=== PATIENT | female | born 1985 | race Caucasian/White ===

== ENCOUNTER 2016-12-03 19:36 | Emergency (ER) | payer BC ==
[2016-12-03 20:00] VITALS: BP 158/78
[2016-12-03] MEDS ORDERED: HYDROcodone/ACETAMIN 5-325 MG* 1 TAB PO ONE (20:15)
--- NOTE | 2016-12-03 20:26 | UC ---
UC Dental HPI - HPI Summary HPI Summary: 31 yo female with right sided facial pain which started this AM and significantly worsened this PM no relief with 800 mg Motrin had dental work (filling) done on right upper molar about a week ago - History of Current Complaint Chief Complaint: UCDentalProblem Stated Complaint: DENTAL PAIN Time Seen by Provider: 12/03/16 20:04 Hx Obtained From: Patient Hx Last Menstrual Period: 11/18/16 Onset/Duration: Sudden Onset, Lasting Hours Severity: Severe Pain Intensity: 8 Pain Scale Used: 0-10 Numeric Aggravating: Nothing Alleviating: Nothing - Allergies/Home Medications Allergies/Adverse Reactions: Allergies Allergy/AdvReac Type Severity Reaction Status Date / Time Latex Allergy Severe Hives Verified 02/28/13 10:50 Clonazepam [From Klonopin] AdvReac Severe Hives Verified 02/28/13 10:50 vistaril AdvReac Severe See Comment Uncoded 02/28/13 10:50 Home Medications: Home Medications Ibuprofen [Ibuprofen 200 MG] 800 mg PO Q6HR PRN 12/03/16 [History Confirmed ] PMH/Surg Hx/FS Hx/Imm Hx Previously Healthy: Yes Endocrine History Of: Denies: Diabetes, Thyroid Disease Cardiovascular History Of: Denies: Hypertension, Pacemaker/ICD Respiratory History Of: Reports: Asthma Denies: Pneumonia GI/ History Of: Denies: Ulcer, Gall Bladder Disease Neurological History Of: Denies: Seizures, Migraine Psychological History Of: Reports: Depression - post Cancer History Of: Denies: Lung Cancer - Surgical History Surgical History: Yes Surgery Procedure, Year, and Place: hernia repair 1988 - Family History Known Family History: Positive: Hypertension - Social History Alcohol Use: Rare Substance Use Type: None Smoking Status (MU): Never Smoked Tobacco - Immunization History Most Recent Tetanus Shot: >10 yrs Review of Systems Constitutional: Negative Skin: Negative Eyes: Negative ENT: Negative Respiratory: Negative Cardiovascular: Negative Gastrointestinal: Negative Genitourinary: Negative Motor: Negative Neurovascular: Negative Musculoskeletal: Negative Neurological: Negative Psychological: Negative All Other Systems Reviewed And Are Negative: Yes Physical Exam Triage Information Reviewed: Yes Appearance: Well-Appearing, Well-Nourished, Pain Distress Vital Signs: Initial Vital Signs Temp 98 F 12/03/16 19:55 Pulse 90 12/03/16 19:55 Resp 16 12/03/16 19:55 BP 158/78 12/03/16 19:55 Pulse Ox 98 12/03/16 19:55 Vital Signs Reviewed: Yes Eyes: Positive: Conjunctiva Clear ENT: Positive: Hearing grossly normal, Pharynx normal, Pharyngeal erythema, TMs normal. Negative: Nasal congestion, Nasal drainage, Tonsillar swelling, Tonsillar exudate, Trismus, Muffled/hoarse voice Dental: Positive: Other: - see image Neck: Positive: Nontender, No Lymphadenopathy Respiratory: Positive: Lungs clear, Normal breath sounds, No respiratory distress, No accessory muscle use Cardiovascular: Positive: RRR, No Murmur Musculoskeletal: Positive: Strength Intact, ROM Intact Neurological: Positive: Alert Psychological Exam: Normal Skin Exam: Normal Dental Complaint Course/Dx - Differential Dx/Diagnosis Provider Diagnoses: facial pain of ? cause. ?dental vs neuralgia Discharge - Discharge Plan Condition: Stable Disposition: HOME Prescriptions: HYDROcodone/ACETAMIN 5-325 MG* [Lorton 5-325 TAB*] 1 tab PO Q4H PRN #15 tab MDD 6 PRN Reason: Pain Additional Instructions: I am unsure of the cause of your facial pain because of your recent dental work I suggest you see your dentist in AM continue ibuprofen don't take narcotic and drive or work if no dental problem is identified you should get in to see your neurologist Images Head: 1 - pain 2 - radiates here Dental: 1 - filling/no gum swelling
== END 2016-12-03 20:26 | disposition home or self-care (01) ==
LOC: UCCORT 19:36
DX: R51 Headache (principal); R03.0 Elevated blood-pressure reading, without diagnosis of hypertension; Z88.8 Allergy status to other drugs, medicaments and biological substances
CPT/HCPCS: 99212; G0463

== ENCOUNTER 2017-03-17 18:43 | Emergency (ER) | payer BC ==
[2017-03-17] MEDS ORDERED: EPINEPHrine AMP 1 MG/ML IM ONE (18:45)
[2017-03-17] MEDS ORDERED: methylPREDNISolone 125 MG* 2 ML VIAL IV ONE (19:34)
[2017-03-17 19:40] VITALS: BP 159/90
[2017-03-17] MEDS ORDERED: NS 0.9% 1000 ML* 1,000 ML IV ONE (19:44)
--- NOTE | 2017-03-17 19:52 | UC ---
Allergic Reaction HPI - HPI Summary HPI Summary: c/o allergic reaction. Did not feel well all day. itchiness started at 17:30, she took 50mgs benadryl at that time and sx are worsening. + nausea, extreme itchiness of chest and scalp. no diarrhea, but feels that she might soon. Had similar reaction a few months ago with negative allergic work up. Denies SOB. here with . She takes medicine for dystonia which includes valium 2.5 mgs regularly x 2 yrs w/o any problems. She has allergy to klonipin. took a fioricet that is very old for a migraine. - History of Current Complaint Chief Complaint: UCAllergicReaction Stated Complaint: POSSIBLE ALLERGRIC REACTION Time Seen by Provider: 03/17/17 18:57 Hx Last Menstrual Period: 11/18/16 Pain Intensity: 0 Pain Scale Used: 0-10 Numeric - Allergies/Home Medications Allergies/Adverse Reactions: Allergies Allergy/AdvReac Type Severity Reaction Status Date / Time Latex Allergy Severe Hives Verified 03/17/17 19:31 Clonazepam [From Klonopin] AdvReac Severe Hives Verified 03/17/17 19:31 vistaril AdvReac Severe See Comment Uncoded 03/17/17 19:31 PMH/Surg Hx/FS Hx/Imm Hx Previously Healthy: Yes Endocrine History: Other - dystonia. Other Endocrine History: dystonia - Surgical History Surgical History: Yes Surgery Procedure, Year, and Place: hernia repair 1988 - Family History Known Family History: Positive: Hypertension - Social History Alcohol Use: Rare Substance Use Type: None Smoking Status (MU): Never Smoked Tobacco - Immunization History Most Recent Tetanus Shot: >10 yrs Review of Systems Constitutional: Other - s Skin: Rash - itching, scratching emphatically, jittery. Eyes: Negative ENT: Negative Respiratory: Negative Cardiovascular: Negative Gastrointestinal: Negative Genitourinary: Negative Motor: Negative Neurovascular: Negative Musculoskeletal: Negative Neurological: Negative Psychological: Anxious All Other Systems Reviewed And Are Negative: Yes Physical Exam Triage Information Reviewed: Yes Appearance: Ill-Appearing - speaks full sentences, no stridor. Vital Signs: Initial Vital Signs Temp 97.8 F 03/17/17 18:52 Pulse 111 03/17/17 18:52 Resp 24 03/17/17 18:52 BP 154/100 03/17/17 18:52 Pulse Ox 99 03/17/17 18:52 Vital Signs Reviewed: Yes Eye Exam: Normal ENT Exam: Normal ENT: Positive: Pharynx normal, Other: - no lip or tongue swelling. Negative: Muffled/hoarse voice Dental Exam: Normal Neck exam: Normal Neck: Positive: Supple, Nontender, No Lymphadenopathy Respiratory Exam: Normal Respiratory: Positive: Lungs clear, Normal breath sounds, No respiratory distress, No accessory muscle use. Negative: Crackles, Rhonchi, Stridor, Wheezing Cardiovascular: Positive: No Murmur, Pulses Normal, Tachycardia Abdominal Exam: Normal Abdomen Description: Positive: Nontender, Soft Musculoskeletal Exam: Normal Neurological Exam: Normal Psychological: Positive: Other: - anxious but improved after meds given. Skin: Positive: rashes - generalized erythema over chest and face. Allergic Reaction Course/Dx - Course Course Of Treatment: Immediate response. 911 called. IV placed. 0.3mgs epinephrine given left leg, 125 mgs solumedrol given through IV. NS 1 Liter started. Pt to [facility] d/t proximety in emergent case. ALS with monitor. - Differential Dx/Diagnosis Differential Diagnosis/HQI/PQRI: Anaphylaxis, Angioedema, Local Allergic Reaction, Urticaria Provider Diagnoses: anaphylaxis - Physician Notification/Consults Discussed Patient Care With: Dr Garber Time Discussed With Above Provider: 19:00 Discharge - Discharge Plan Condition: Fair Disposition: [facility] Referrals: No Primary Care Phys,NOPCP [Primary Care Provider] - Additional Instructions: Follow up with pcp 1 day
== END 2017-03-17 19:00 | disposition short-term general hospital (02) ==
LOC: UCCORT 18:43
DX: T78.2XXA Anaphylactic shock, unspecified, initial encounter (principal)
CPT/HCPCS: 96372; 96374; 99213; G0463; J0171; J2930

== ENCOUNTER 2017-08-20 19:05 | Emergency (ER) | payer BC ==
[2017-08-20 20:24] LABS: Urine Bacteria Absent (Absent); Urine Bilirubin Negative (Negative); Urine Glucose Negative (Negative); Urine Nitrite Negative (Negative)
[2017-08-20 21:03] LABS: Hematocrit 44 % (35-47); Hemoglobin 15.3 g/dl (12.0-16.0); Mean Corpuscular HGB Conc 35 g/dl (31-36); Mean Corpuscular Hemoglobin 30 pg (27-31); Mean Corpuscular Volume 86 fL (80-97); Mean Platelet Volume 7 um3 (7.4-10.4); Red Blood Count 5.13 10^6/ul (4.0-5.4); Red Cell Distribution Width 13 % (10.5-15); White Blood Count 13.4 10^3/ul (3.5-10.8)
[2017-08-20] MEDS ORDERED: NS 0.9% 1000 ML* 2,000 ML IV ONE (21:16)
[2017-08-20] MEDS ORDERED: Ondansetron INJ* 2 MG/ML VIAL IV ONE ×2 (21:16→22:36)
[2017-08-20 21:28] LABS: Albumin 4.5 g/dL (3.2-5.2); BUN/Creatinine Ratio 23.5 (8-20); Calcium 9.3 mg/dL (8.6-10.3); EGFR African American 104.7 (>60); EGFR Non-African American 81.4 (>60); Globulin 2.9 g/dL (2-4); Potassium 3.6 mmol/L (3.5-5.0); Total Bilirubin 0.6 mg/dL (0.2-1.0); Total Protein 7.4 g/dL (6.4-8.9)
[2017-08-20] MEDS ORDERED: Iohexol 300* (CONTRAST) 10 ML SDV IV ONE (22:19)
[2017-08-20] MEDS ORDERED: Ondansetron INJ* 2 MG/ML VIAL ONE (22:37)
[2017-08-21] MEDS ORDERED: Levofloxacin TAB* 500 MG PO ONE (00:14)
[2017-08-21 00:46] VITALS: BP 128/84
--- NOTE | 2017-08-21 03:02 | ED ---
Polly Mccall Gabriel, scribed for Blake Gamboa on 08/20/17 at 2115 . Abdominal Pain/Female - HPI Summary HPI Summary: This patient is a 32 year old F presenting to [facility] with a chief complaint of ABD pain since last night. The patient rates the pain 6/10 in severity. Patient reports vomiting and inability to handle PO intake. Patient denies vaginal discharge. Patients states her last menstrual cycle was 06/09. - History of Current Complaint Chief Complaint: EDAbdPain Stated Complaint: ABD PAIN Time Seen by Provider: 08/20/17 21:11 Hx Obtained From: Patient Hx Last Menstrual Period: 06/09 Onset/Duration: Sudden Onset, Still Present Timing: Constant Severity Currently: Moderate Pain Intensity: 6 Pain Scale Used: 0-10 Numeric Aggravating Factor(s): Food Associated Signs and Symptoms: Positive: Negative - vaginal discharge, Vomiting Allergies/Adverse Reactions: Allergies Allergy/AdvReac Type Severity Reaction Status Date / Time Latex Allergy Severe Hives Verified 08/20/17 19:32 Acetaminophen [From Fioricet] Allergy Unknown Verified 08/20/17 19:32 Reaction Details Butalbital [From Fioricet] Allergy Unknown Verified 08/20/17 19:32 Reaction Details Caffeine [From Fioricet] Allergy Unknown Verified 08/20/17 19:32 Reaction Details Clonazepam [From Klonopin] AdvReac Severe Hives Verified 08/20/17 19:32 vistaril AdvReac Severe See Comment Uncoded 08/20/17 19:32 PMH/Surg Hx/FS Hx/Imm Hx Previously Healthy: No Endocrine/Hematology History: Reports: Other Endocrine/Hematological Disorders - goiter Denies: Hx Diabetes, Hx Systemic Lupus Erythematosus, Hx Thyroid Disease, Hx Anemia, Hx Unexplained Bleeding Cardiovascular History: Reports: Hx Syncope - as a teenager Denies: Hx Hypercholesterolemia, Hx Hypotension, Hx Hypertension, Hx Pacemaker/ICD Respiratory History: Reports: Hx Asthma, Hx Seasonal Allergies Denies: Hx Chronic Bronchitis, Hx Cystic Fibrosis, Hx Lung Cancer, Hx Pneumonia, Hx Sleep Apnea GI History: Denies: Hx Cirrhosis, Hx Crohn's Disease, Hx Diverticulosis, Hx Gall Bladder Disease, Hx Gastroesophageal Reflux Disease, Hx Ulcer History: Reports: Hx Kidney Infection - last 2 yrs ago Denies: Hx Renal Disease Musculoskeletal History: Denies: Hx Arthritis, Hx Back Problems, Hx Fibromyalgia, Hx Osteoporosis Sensory History: Reports: Hx Contacts or Glasses - not with pt Denies: Hx Hearing Aid Opthamlomology History: Reports: Hx Contacts or Glasses - not with pt Neurological History: Denies: Hx Headaches, Hx Migraine, Hx Seizures, Hx Spinal Cord Injury Psychiatric History: Reports: Hx Depression - post Denies: Hx Eating Disorder, Hx Panic Disorder, Hx Suicide Attempt, Hx Substance Abuse - Surgical History Surgery Procedure, Year, and Place: hernia repair 1988 Hx Anesthesia Reactions: No Infectious Disease History: No Infectious Disease History: Denies: Hx Human Immunodeficiency Virus (HIV), Hx Shingles, Hx Tuberculosis, Traveled Outside the [place] in Last 30 Days - Family History Known Family History: Positive: Hypertension - Social History Alcohol Use: Rare Hx Substance Use: No Substance Use Type: Reports: None Hx Tobacco Use: No Smoking Status (MU): Never Smoked Tobacco Review of Systems Positive: Abdominal Pain, Vomiting Genitourinary: Negative - vaginal discharge All Other Systems Reviewed And Are Negative: Yes Physical Exam - Summary Physical Exam Summary: Appearance: Well appearing, no pain distress Skin: warm, dry, reflects adequate perfusion Head/face: normal Eyes: EOMI, SHAUNA ENT: normal Neck: supple, non-tender Respiratory: CTA, breath sounds present Cardiovascular: RRR, pulses symmetrical Abdomen: soft. Tenderness in RLQ Bowel: present Musculoskeletal: normal, strength/ROM intact Neuro: normal, sensory motor intact, A&Ox3 Triage Information Reviewed: Yes Vital Signs On Initial Exam: Initial Vitals Temp Pulse Resp BP Pulse Ox 98.5 F 107 16 150/89 96 08/20/17 19:20 08/20/17 19:20 08/20/17 19:20 08/20/17 19:20 08/20/17 19:20 Vital Signs Reviewed: Yes Diagnostics - Vital Signs Vital Signs Temp Pulse Resp BP Pulse Ox 08/20/17 20:55 97.7 F 98 16 138/92 96 08/20/17 19:20 98.5 F 107 16 150/89 96 - Laboratory Lab Results: Lab Results 08/20/17 08/20/17 Range/Units 20:00 20:49 WBC 13.4 H (3.5-10.8) 10^3/ul RBC 5.13 (4.0-5.4) 10^6/ul Hgb 15.3 (12.0-16.0) g/dl Hct 44 (35-47) % MCV 86 (80-97) fL MCH 30 (27-31) pg MCHC 35 (31-36) g/dl RDW 13 (10.5-15) % Plt Count 381 (150-450) 10^3/ul MPV 7 L (7.4-10.4) um3 Neut % (Auto) 69.2 (38-83) % Lymph % (Auto) 23.8 L (25-47) % Logan % (Auto) 5.3 (1-9) % Eos % (Auto) 0.7 (0-6) % Baso % (Auto) 1.0 (0-2) % Absolute Neuts (auto) 9.3 H (1.5-7.7) 10^3/ul Absolute Lymphs (auto) 3.2 (1.0-4.8) 10^3/ul Absolute Monos (auto) 0.7 (0-0.8) 10^3/ul Absolute Eos (auto) 0.1 (0-0.6) 10^3/ul Absolute Basos (auto) 0.1 (0-0.2) 10^3/ul Absolute Nucleated RBC 0 10^3/ul Nucleated RBC % 0 Urine Color Yellow Urine Appearance Cloudy Urine pH 5.0 (5-9) Ur Specific [place] 1.025 (1.010-1.030) Urine Protein 1+(30 mg/dl) H (Negative) Urine Ketones 2+ H (Negative) Urine Blood 2+ H (Negative) Urine Nitrate Negative (Negative) Urine Bilirubin Negative (Negative) Urine Urobilinogen Negative (Negative) Ur Leukocyte Esterase 1+ H (Negative) Urine WBC (Auto) 1+(6-10/hpf) H (Absent) Urine RBC (Auto) 3+(>10/hpf) H (Absent) Ur Squamous Epith Cells Present H (Absent) Urine Bacteria Absent (Absent) Urine Glucose Negative (Negative) Result Diagrams: 08/20/17 20:49 08/20/17 20:49 Lab Statement: Any lab studies that have been ordered have been reviewed, and results considered in the medical decision making process. - CT CT ABD/Pelvis CT Interpretation Completed By: Radiologist - no evidence for acute disease ED physician has reviewed this radiology report and agrees. Abdominal Pain Fem Course/Dx - Course Course Of Treatment: This patient is a 32 year old F presenting to [facility] with a chief complaint of ABD pain since last night. CT ABD/Pelvis reveals, per radiologist, no evidence for acute disease. Blood and urine were collected with evidence for infection. Patient will be discharged with prescription for Levoflaxacin and follow up from Dr. Schmitt. Pt was diagnosed with UTI. The patient is agreeable with this plan. - Diagnoses Differential Diagnosis: Positive: Appendicitis, Diverticulitis, Renal Colic, Urinary Tract Infection Provider Diagnoses: UTI (urinary tract infection) Discharge - Discharge Plan Condition: Stable Disposition: HOME Prescriptions: Levofloxacin TAB* [Levaquin TAB*] 500 mg PO DAILY #4 tab Patient Education Materials: Levofloxacin (By mouth), Urinary Tract Infection in Women (ED) Referrals: Cherry Schmitt MD [Primary Care Provider] - 3 Days Additional Instructions: RETURN TO THE EMERGENCY DEPARTMENT FOR CHANGING OR WORSENING SYMPTOMS. The documentation as recorded by the Polly urena Gabriel accurately reflects the service I personally performed and the decisions made by Bee mcarthur Emmanuel.
--- NOTE | 2017-08-21 07:57 | RAD ---
INDICATION: Right lower quadrant abdominal pain and nausea. COMPARISON: Comparison is made with a prior CT of the abdomen and pelvis from September 17, 2010. TECHNIQUE: A CT scan of the abdomen and pelvis was performed with intravenous and oral contrast following intravenous injection of 91 ml of Omnipaque 300 nonionic contrast. Contiguous axial sections were obtained from the lung bases through the symphysis pubis. Images were reconstructed in the coronal and sagittal planes. FINDINGS: The lung bases are clear. No pleural effusion is present. The liver and spleen are within normal limits in size without significant focal abnormality. No calcified gallstones are seen. The pancreas appears to be within normal limits in size. The kidneys and adrenal glands are normal in size. No hydronephrosis is seen. No significant focal renal abnormality is seen. The aorta is normal in caliber and demonstrates homogeneous contrast opacification. No significant enlarged retroperitoneal lymph nodes are seen. The stomach, small and large bowel appear nondistended. The appendix is within normal limits. There is mild sigmoid diverticulosis. There is no evidence for diverticulitis or colitis. There is a periumbilical hernia containing fat which has increased slightly in size from the prior study. The uterus is anteverted and normal in size. The ovaries appear within normal limits in size. No free intraperitoneal air or fluid is seen. No significant focal osseous abnormality is seen. IMPRESSION: 1. NO EVIDENCE FOR ACUTE FINDING OR CAUSE FOR THE PATIENT'S ABDOMINAL PAIN IS SEEN. 2. SMALL PERIUMBILICAL HERNIA CONTAINING FAT.
== END 2017-08-21 00:45 | disposition home or self-care (01) ==
LOC: ED 19:05
DX: N39.0 Urinary tract infection, site not specified (principal); R11.10 Vomiting, unspecified; Z32.02 Encounter for pregnancy test, result negative; K42.9 Umbilical hernia without obstruction or gangrene; E04.9 Nontoxic goiter, unspecified; J45.909 Unspecified asthma, uncomplicated; Z88.6 Allergy status to analgesic agent; Z91.040 Latex allergy status
CPT/HCPCS: 36415; 74177; 80053; 81003; 81015; 83690; 84702; 85025; 86141; 87086; 96374; 96376; 99282; J2405; Q9967

== ENCOUNTER 2017-11-08 05:46 | Day surgery (SDC) | payer BC ==
[2017-11-08] MEDS ORDERED: Buffered Lidocaine 0.9% SYRIN* 5 ML/SYR SYRINGE ONE (05:56)
[2017-11-08] MEDS ORDERED: ceFAZolin 2 GM in 100 MLS NS (*) BAG IVPB ONE (05:56)
[2017-11-08] MEDS ORDERED: fentaNYL* 50 MCG/ML 2 ML VIAL (100 MCG VIAL) ONE (07:35)
[2017-11-08] MEDS ORDERED: Midazolam* 1 MG/ML 2 ML VIAL (2 MG) ONE ×2 (07:36→07:51)
[2017-11-08] MEDS ORDERED: Chloroprocaine 2%* 20 ML VIAL ONE (08:16)
[2017-11-08] MEDS ORDERED: PROCHLORPERAZINE INJ 5 MG/ML 2 ML VIAL IV PRN (08:21)
[2017-11-08] MEDS ORDERED: Ketorolac INJ* 30 MG/ML 1 ML VIAL IV PRN (08:21)
[2017-11-08] MEDS ORDERED: Acetaminophen TAB* 325 MG PO PRN (08:21)
[2017-11-08] MEDS ORDERED: Naloxone* 0.4 MG/ML 1 ML VIAL IV PRN (08:21)
[2017-11-08] MEDS ORDERED: oxyCODONE/Acetamin 5/325 MG* TAB PO PRN (08:25)
[2017-11-08] MEDS ORDERED: Ketorolac INJ* 30 MG/ML 1 ML VIAL ONE (08:28)
[2017-11-08] MEDS ORDERED: oxyCODONE/Acetamin 5/325 MG* TAB ONE (09:10)
[2017-11-08 10:10] VITALS: BP 121/76
--- NOTE | 2017-11-08 23:48 | OP ---
DATE OF OPERATION: 11/08/17 - [facility] DATE OF : 83 SURGEON: Lorenzo Castañeda MD ANESTHESIOLOGIST: Dr. Hewitt. ANESTHESIA: Spinal anesthesia. PRE-OP DIAGNOSES: Irregular vaginal bleeding, dysmenorrhea, thickened endometrium, endometrial polyps. POST-OP DIAGNOSES: Irregular vaginal bleeding, dysmenorrhea, thickened endometrium, endometrial polyps. OPERATIVE PROCEDURE: Dilation, hysteroscopy, MyoSure polypectomy. FINDINGS: Small anteverted uterus, 2 endometrial polyps were seen. No adnexal masses were palpated. The endometrium appeared otherwise normal. Both tubal ostia were visualized. COMPLICATIONS: None. COUNT: Sponge, lap, and needle counts were correct x2. Patient was brought to recovery room awake and in stable condition. DESCRIPTION OF PROCEDURE: The patient was brought to the operating room. When spinal anesthesia was found to be adequate, the patient was prepped and draped in the usual sterile fashion in the dorsal lithotomy position. A time-out was performed. Exam under anesthesia was performed with the above findings noted. A weighted speculum was placed in the vagina. The anterior lip of the cervix was grasped with a single tooth tenaculum and the cervix was gently and easily dilated with graduated Hegar dilators. The MyoSure was introduced. Two polyps were seen within the endometrium. Both tubal ostia were visualized. Both polyps were removed with the MyoSure LITE. No other polyps or fibroids were seen. Curettage was performed. Endometrial curettings were sent to pathology. The single tooth tenaculum was removed from the cervix. Excellent hemostasis was noted. All instruments were removed. Sponge count was correct x2. Patient tolerated the procedure well, was brought to recovery room awake and in stable condition. [id number]/[facility] #: [id number] [facility]
== END 2017-11-08 10:12 | disposition home or self-care (01) ==
LOC: OR 05:46
PROVIDERS: ATTEND Obstetrics & Gynecology
DX: N93.8 Other specified abnormal uterine and vaginal bleeding (principal); N94.6 Dysmenorrhea, unspecified; R93.8 Abnormal findings on diagnostic imaging of other specified body structures; N84.0 Polyp of corpus uteri; J45.909 Unspecified asthma, uncomplicated; F41.9 Anxiety disorder, unspecified; G24.9 Dystonia, unspecified; Z79.899 Other long term (current) drug therapy
CPT/HCPCS: 81025; 88305; A9270-GY; J1885; J2250; J2400; J3010

== ENCOUNTER 2017-11-11 22:35 | Emergency (ER) | payer BC ==
--- NOTE | 2017-11-11 23:51 | ED ---
GI/ HPI - HPI Summary HPI Summary: Pt here w/ suprapubic pain/pressure since D&C for endometrial polyp on Saturday w / Dr. Castañeda. Saturday she developed chills and subjective fever. No was Has vaginal bleeding but not even as heavy as a typical period. Denies N/V/D, back/ flank pain, dysuria, urinary frequency. Has been taking percocet and ibuprofen for pain but trying to back off of percocet. Moving bowels well and urinating w/ o difficulty. Admits she pain is worse when she has to urinate. No concern for . - History of Current Complaint Chief Complaint: EDOBProblems Time Seen by Provider: 11/11/17 23:16 Stated Complaint: PELVIC PAIN POST OP Hx Obtained From: Patient Hx Last Menstrual Period: 06/09 Pain Intensity: 4 - Allergy/Home Medications Allergies/Adverse Reactions: Allergies Allergy/AdvReac Type Severity Reaction Status Date / Time clonazepam [From Klonopin] Allergy Severe Hives Verified 11/11/17 22:41 latex Allergy Severe Hives Verified 11/11/17 22:41 acetaminophen [From Fioricet] Allergy Swelling Verified 11/11/17 22:41 Of Face,Lips,& Throat butalbital [From Fioricet] Allergy Swelling Verified 11/11/17 22:41 Of Face,Lips,& Throat caffeine [From Fioricet] Allergy Swelling Verified 11/11/17 22:41 Of Face,Lips,& Throat vistaril AdvReac Severe Swelling Uncoded 11/11/17 22:41 Of Face,Lips,& Throat PMH/Surg Hx/FS Hx/Imm Hx Previously Healthy: Yes Endocrine/Hematology History: Reports: Other Endocrine/Hematological Disorders - goiter Denies: Hx Diabetes, Hx Systemic Lupus Erythematosus, Hx Thyroid Disease, Hx Anemia, Hx Unexplained Bleeding Cardiovascular History: Reports: Hx Syncope - as a teenager Denies: Hx Hypercholesterolemia, Hx Hypotension, Hx Hypertension, Hx Pacemaker/ICD, Other Cardiovascular Problems/Disorders Respiratory History: Reports: Hx Asthma, Hx Seasonal Allergies Denies: Hx Chronic Bronchitis, Hx Cystic Fibrosis, Hx Lung Cancer, Hx Pneumonia, Hx Sleep Apnea, Other Respiratory Problems/Disorders GI History: Denies: Hx Cirrhosis, Hx Crohn's Disease, Hx Diverticulosis, Hx Gall Bladder Disease, Hx Gastroesophageal Reflux Disease, Hx Ulcer, Other GI Disorders History: Reports: Hx Kidney Infection - last 2 yrs ago, Other Problems/ Disorders - Bacterial Vaginosis- 08/2017 treated. Denies: Hx Kidney Stones, Hx Renal Disease Musculoskeletal History: Reports: Other Musculoskeletal History - Rhabdomyolysis - 2012, Inguinal Hernia repair Denies: Hx Arthritis, Hx Back Problems, Hx Fibromyalgia, Hx Osteoporosis Sensory History: Reports: Hx Contacts or Glasses - not with pt Denies: Hx Hearing Aid Opthamlomology History: Reports: Hx Contacts or Glasses - not with pt Neurological History: Reports: Other Neuro Impairments/Disorders - Paroxysmal Nonkinesigenic Dystonia Denies: Hx Headaches, Hx Migraine, Hx Seizures, Hx Spinal Cord Injury Psychiatric History: Reports: Hx Depression - post Denies: Hx Eating Disorder, Hx Panic Disorder, Hx Suicide Attempt, Hx Substance Abuse - Cancer History Hx Chemotherapy: No - Surgical History Surgery Procedure, Year, and Place: hernia repair 1988 Hx Anesthesia Reactions: No - Immunization History Date of Influenza Vaccine: 06/2017 Infectious Disease History: No Infectious Disease History: Denies: Hx Human Immunodeficiency Virus (HIV), Hx Shingles, Hx Tuberculosis, Traveled Outside the [place] in Last 30 Days - Family History Known Family History: Positive: Hypertension - Social History Occupation: Employed Full-time - nurse at Lives: With Family Alcohol Use: Weekly Alcohol Amount: 4 drinks per week Hx Substance Use: No Substance Use Type: Reports: None Hx Tobacco Use: No Smoking Status (MU): Never Smoked Tobacco Review of Systems Positive: Fever - subjective, Chills. Negative: Fatigue Cardiovascular: Negative Negative: Chest Pain Respiratory: Negative Negative: Shortness Of Breath Positive: Abdominal Pain. Negative: Vomiting, Diarrhea, Nausea Positive: other - vaginal bleeding. Negative: burning, dysuria, discharge, frequency, flank pain, hematuria, incontinence, pain, urgency Skin: Negative Neurological: Negative Negative: Headache Psychological: Normal All Other Systems Reviewed And Are Negative: Yes Physical Exam Triage Information Reviewed: Yes Vital Signs On Initial Exam: Initial Vitals Temp Pulse Resp BP Pulse Ox 97.9 F 94 16 131/84 98 11/11/17 22:37 11/11/17 22:37 11/11/17 22:37 11/11/17 22:37 11/11/17 22:37 Vital Signs Reviewed: Yes Appearance: Positive: Well-Appearing, No Pain Distress, Well-Nourished Skin: Positive: Warm, Skin Color Reflects Adequate Perfusion, Dry Head/Face: Positive: Normal Head/Face Inspection Eyes: Positive: Normal, EOMI, Conjunctiva Clear - Anicteric sclera ENT: Positive: Normal ENT inspection, Hearing grossly normal, Pharynx normal - Oral mucosa moist Neck: Positive: Supple Respiratory/Lung Sounds: Positive: Breath Sounds Present Cardiovascular: Positive: Normal Abdomen Description: Positive: No Organomegaly, Soft, Other: - Suprapubic area with mild tenderness to palpation. Negative: CVA Tenderness (R), CVA Tenderness (L), Distended, Guarding - no rebounding Pelvic Exam: Positive: external exam normal, bimanual exam normal, no masses, blood, tender uterus. Negative: cervicitis, discharge Musculoskeletal: Positive: Normal, Strength/ROM Intact Neurological: Positive: Normal, Sensory/Motor Intact, Alert, Oriented to Person Place, Time, CN Intact II-III Psychiatric: Positive: Normal - Concerned but calm and cooperative Diagnostics - Vital Signs Vital Signs Temp Pulse Resp BP Pulse Ox 11/11/17 22:37 97.9 F 94 16 131/84 98 - Laboratory Result Diagrams: 11/11/17 23:55 11/11/17 23:55 Lab Statement: Any lab studies that have been ordered have been reviewed, and results considered in the medical decision making process. GIGU Course/Dx - Course Course Of Treatment: Patient presents with pelvic discomfort and vaginal bleeding since procedure on Saturday to remove endometrial polyps. She reports leading is no heavier than a period and has been consistent since procedure. Discomfort has been present since then as well. She is only here tonight as she 's had subjective chills and low-grade fever which started a few days after procedure. Reports she feels fine at the moment. Vitals are unremarkable for infection as her temperature, heart rate and blood pressure are all within normal limits. Labs are assessed for infection as wellher white blood cell count and lactic acid levels are within normal limits. She does have a very mildly elevated CRP however she reports is chronically elevated. Urine reveals blood however she is bleeding from her vaginal canal this point in time. No concern for urinary tract infection. She agrees to continue supportive care at home with warm heat packs, ibuprofen and Percocet for pain as needed. She will follow-up with [facility] as directed and return to the emergency department if danger signs or symptoms present. note: Discussed with Dr. Michelle ultrasound necessary - Diagnoses Provider Diagnoses: Pelvic pain Discharge - Discharge Plan Condition: Stable Disposition: HOME Patient Education Materials: Pelvic Pain in Women (ED) Forms: *Work Release Referrals: Cherry Schmitt MD [Primary Care Provider] - Additional Instructions: Your pelvic pain is most likely from your recent surgery. Continue to use pain medications as directed along with heat packs, hot bath, and rest along with hydration. Follow-up with [facility] as directed. *If you develop heavy vaginal bleeding, fever, vomiting, worsening of pelvic pain and/or back pain or UTI sx, return to ED.
[2017-11-12 00:19] LABS: ABS Basophils 0.1 10^3/ul (0-0.2); ABS Eosinophils 0.5 10^3/ul (0-0.6); ABS Lymphocytes 2.8 10^3/ul (1.0-4.8); ABS Monocytes 0.6 10^3/ul (0-0.8); ABS Neutrophils 2.4 10^3/ul (1.5-7.7); ABS Nucleated RBC 0 10^3/ul; Eosinophil % 7.8 % (0-6); Hematocrit 43 % (35-47); Lymphocyte % 44.3 % (25-47); Mean Corpuscular HGB Conc 35 g/dl (31-36); Mean Corpuscular Hemoglobin 30 pg (27-31); Mean Corpuscular Volume 86 fL (80-97); Mean Platelet Volume 7 um3 (7.4-10.4); Nucleated Red Blood Cells % 0.1; Platelet Count 341 10^3/ul (150-450); Red Blood Count 5.03 10^6/ul (4.0-5.4); Red Cell Distribution Width 13 % (10.5-15); White Blood Count 6.4 10^3/ul (3.5-10.8)
[2017-11-12 00:25] LABS: EGFR Non-African American 96.4 (>60)
[2017-11-12 00:33] LABS: Urine Appearance Turbid; Urine Blood 1+ (Negative); Urine Color Yellow; Urine Ketones Negative (Negative); Urine Protein 1+(30 mg/dL) (Negative); Urine Urobilinogen Negative (Negative)
[2017-11-12] MEDS ORDERED: Ibuprofen TAB* 600 MG PO ONE (01:00)
[2017-11-12 01:23] VITALS: BP 121/63
== END 2017-11-12 01:22 | disposition home or self-care (01) ==
LOC: ED 22:35
DX: R10.2 Pelvic and perineal pain (principal); R10.9 Unspecified abdominal pain; R50.9 Fever, unspecified
CPT/HCPCS: 36415; 80048; 81003; 81015; 83605; 85025; 86140; 99282; A9270-GY

== ENCOUNTER 2018-05-05 17:14 | Emergency (ER) | payer BC ==
[2018-05-05 17:54] VITALS: BP 129/80
--- NOTE | 2018-05-05 18:13 | UC ---
Skin Complaint HPI - HPI Summary HPI Summary: The pt is a 33 y/o female presenting to c/o a pruritic patch on the RUE for the last 2 days worsened this morning. The sx are similar to a previous episode of cellulitis 1 month ago for which she was given Doxycycline. She notes pain , redness, edema and warmth in the patch. The pt is not concerned that it is lyme disease. This is scribe Mary Carmen Cuello documenting for attending Dr. Wale Robertson .I, Dr. Wale Robertson personally performed the services described in this documentation as scribed in my presence and it is both accurate and complete. - History of Current Complaint Chief Complaint: UCSkin Time Seen by Provider: 05/05/18 18:01 Stated Complaint: SKIN COMPLAINT Hx Obtained From: Patient Hx Last Menstrual Period: 06/09 Onset/Duration: Lasting Days - 2 days, Worse Since - Today morning Timing: Constant Current Severity: None Pain Intensity: 0 Pain Scale Used: 0-10 Numeric Location: Diffuse - RUE Character: Swelling, Pruritus, Redness, Painful Alleviating Factor(s): OTC Meds - Doxicycline Associated Signs & Symptoms: Positive: Rash, Tenderness Related History: Other: - PMHx of Cellulitis - Allergy/Home Medications Allergies/Adverse Reactions: Allergies Allergy/AdvReac Type Severity Reaction Status Date / Time clonazepam [From Klonopin] Allergy Severe Hives Verified 05/05/18 17:55 latex Allergy Severe Hives Verified 05/05/18 17:55 acetaminophen [From Fioricet] Allergy Swelling Verified 05/05/18 17:55 Of Face,Lips,& Throat butalbital [From Fioricet] Allergy Swelling Verified 05/05/18 17:55 Of Face,Lips,& Throat caffeine [From Fioricet] Allergy Swelling Verified 05/05/18 17:55 Of Face,Lips,& Throat vistaril AdvReac Severe Swelling Uncoded 05/05/18 17:55 Of Face,Lips,& Throat Home Medications: Home Medications EPINEPHrine [Epipen 2-Brad] 0.3 mg IM PRN 05/05/18 [History] Hydrocortisone 1% CREAM(NF) 1 applic TOPICAL 05/05/18 [History] Neomycin/Bacitracin/Polymyxinb [Triple Antibiotic Ointment] PRN 05/05/18 [ History] diPHENhydraMINE 2% CREAM(NF) [Benadryl 2% CREAM (NF)] PRN 05/05/18 [History] diPHENhydraMINE PO* [Benadryl PO 25 MG TAB*] 25 mg PO ONCE PRN 05/05/18 [ History Confirmed 05/05/18] Review of Systems Constitutional: Negative - Fever Skin: Rash, Other - Positive: redness, edema, warm to touch, pain All Other Systems Reviewed And Are Negative: Yes PMH/Surg Hx/FS Hx/Imm Hx Previously Healthy: No - PMHx of Dystonia and cellulitis - Surgical History Surgical History: Yes Surgery Procedure, Year, and Place: hernia repair 1988. UTERINE FIBROID REMOVED - Family History Known Family History: Positive: Cardiac Disease, Hypertension, Diabetes - Social History Occupation: Employed Full-time Lives: With Family Alcohol Use: Occasionally Alcohol Amount: 3 drinks per week Substance Use Type: None Smoking Status (MU): Never Smoked Tobacco - Immunization History Most Recent Tetanus Shot: >10 yrs Physical Exam - Summary Physical Exam Summary: General: well-appearing, no pain distress Skin: 5 mm diameter erythematous blanching , warm to touch on the R distal medial forearm; warm, color reflects adequate perfusion, dry Head: normal Eyes: EOMI, SHAUNA ENT: normal Neck: supple, nontender Respiratory: CTA, breath sounds present Cardiovascular: RRR Abdomen: soft, nontender Bowel: present Musculoskeletal: normal, strength/ROM intact Neurological: sensory/motor intact, A&O x3 Psychological: affect/mood appropriate Triage Information Reviewed: Yes Vital Signs: Initial Vital Signs Temp 97.6 F 05/05/18 17:52 Pulse 106 05/05/18 17:52 Resp 16 05/05/18 17:52 BP 129/80 05/05/18 17:52 Pulse Ox 98 05/05/18 17:52 Vital Signs Reviewed: Yes Course/Dx - Diagnoses Provider Diagnoses: CELLULITIS RIGHT ARM Discharge - Sign-Out/Discharge Documenting (check all that apply): Patient Departure - Discharge Plan Condition: Stable Disposition: HOME Prescriptions: Cephalexin CAP* [Keflex CAP*] 500 mg PO QID #40 cap Fluconazole [Diflucan 150 MG (NF)] 150 mg PO ONCE #1 tab Patient Education Materials: Cellulitis (ED) Referrals: Cherry Schmitt MD [Primary Care Provider] - Additional Instructions: FOLLOW UP WITH YOUR DOCTOR. GET RECHECKED FOR ANY WORSENING OF YOUR CONDITION OR QUESTIONS OR CONCERNS. - Billing Disposition and Condition Condition: STABLE Disposition: Home
== END 2018-05-05 18:17 | disposition home or self-care (01) ==
LOC: UCEAST 17:14
DX: L03.113 Cellulitis of right upper limb (principal); Z88.8 Allergy status to other drugs, medicaments and biological substances; Z88.6 Allergy status to analgesic agent; Z91.040 Latex allergy status; Z82.49 Family history of ischemic heart disease and other diseases of the circulatory system; Z83.3 Family history of diabetes mellitus
CPT/HCPCS: 99212; G0463

== ENCOUNTER 2018-07-30 08:29 | Emergency (ER) | payer BC ==
--- OUTSIDE RECORDS SUMMARY | 2018-07-30 09:02 | XMS REPORT ---
:1985 External Reference #:[id number] Author Organization [facility] Address [address] [place] [address] [place] [address] Phone [phone] Care Team Providers Name Role Phone Cherry Schmitt MD Primary Care Physician Unavailable Payers Type Date Identification Numbers Payment Provider Subscriber Commercial Effective: Policy Number: [id number] [employer]ets Yony Guerrero 2012 PayID: [id number] [address] [place] [address] Problems Date Description Provider Status Onset: 11/28/2012 Paroxysmal dystonia Yuli Tinsley M.D. Active Family History Date Family Member(s) Problem(s) Comments General Hypercholesterolemia General Osteoporosis Father Hypercholesterolemia Mother Hypercholesterolemia Social History Type Date Description Comments ETOH Use Occasionally consumes alcohol 1-2 drinks on the weekend Smoking Patient has never smoked Exercise Type/Frequency Exercises sporadically Allergies, Adverse Reactions, Alerts Date Description Reaction Status Severity Comments 12/03/2012 Vistaril active 12/03/2012 Klonopin active 12/03/2012 Latex active 06/05/2017 Fioricet Anaphylaxis active Medications Medication Date Status Form Strength Qnty SIG Indications Ordering Provider Acetazolamide 03/05/ Active Tablets 125mg 450ta 2 by mouth Yuli 2012 bs every [place], morning, 3 M.D. by mouth every night Valium 00/00/ Active Tablets 5mg 20tab 1 tab by Yuli 0000 s mouth twice [place], a day as M.D. needed muscle spasm Melatonin 00/00/ Active Tablets 3mg 1 tab qhs Unknown 0000 Dispers prn Xyzal Allergy 00/00/ Active Tablets 5mg 1 by mouth Unknown 24HR 0000 every day Ortho 00/00/ Active Tablets 0.18/0.21 1 by mouth Unknown Tri-Cyclen Lo 0000 5/0.25 every day mg-25 mcg Lansoprazole / Active Capsules DR 30mg 1 by mouth Unknown 0000 every day Ranitidine 150 / Active Tablets 150mg one by Unknown Maximum 0000 mouth Daily Strength as needed Flonase Allergy / Active Suspension 50mcg/Act spray 1 Unknown Relief 0000 spray in each nostril daily B12 Fast 01/06/ Hx Tablets 5000mcg 90tab sublingual Josr Dissolve 2018 - Dispers s daily Memo, 07/07/ M.D. 2018 Vitamin D 12/18/ Hx Tablets 1000Unit 90tab by mouth Yuli 2017 - s everyday [place], 04/03/ M.D. 2018 Gabapentin 12/07/ Hx Capsules 300mg 90cap 1 by mouth G50.0 Yuli 2016 - s every night [place], 06/04/ at bedtime M.D. 2016 prn Ibuprofen 02/03/ Hx Capsules 200mg 1 cap po Yuli 2013 - prn [place], 07/07/ M.D. 2018 Carbamazepine 12/31/ Hx 100mg 90uni Take 1 tab Yuli 2012 - ts po qam and [place], 02/13/ 2 tabs po q M.D. 2012 evening Tegretol-XR 12/25/ Hx Tablets ER 100mg 90tab take 1 po Yuli 2012 - 12HR s qam and 2 [place], 12/31/ po qpm M.D. 2012 Benadryl / Hx Capsules 25mg 60cap take qhs Unknown Allergy 0000 - s prn 2012 Tegretol / Hx 200mg 1 tab po Unknown 0000 - bid 2012 Magic Mouthwash / Hx Equal 100ml swish and Unknown 0000 - Parts Of spit 5x per 02/13/ day prn 2012 Nikkie Allergy / Hx Tablets 60mg 1 tab po Unknown 0000 - bid prn 06/04/ seasonal 2017 allergies Hair/Skin/Nails / Hx Tablets 1 by mouth Unknown 0000 - every day 2017 Lo Loestrin Fe / Hx Tablets 1mg-10 Take One Unknown 0000 - mcg / 10 Tablet By 12/05/ mcg Mouth Every 2018 Day Amoxicillin / Hx Tablets 500mg 1 by mouth Unknown 0000 - 3x a day x 2016 Omeprazole / Hx Capsules DR 40mg 1 by mouth Unknown 0000 - every day 2017 Vitamin B12 TR / Hx Tablets ER 1000mcg 1 by mouth Unknown 0000 - every day 2017 Vital Signs Date Vital Result Comment 07/08/2018 Height 61 inches 5'1" Weight 151.00 lb Heart Rate 90 /min BP Systolic 116 mmHg BP Diastolic 82 mmHg Respiratory Rate 20 /min Pain Level 0 O2 % BldC Oximetry 96 % BMI (Body Mass Index) 28.5 kg/m2 04/03/2018 Height 61 inches 5'1" Weight 148.12 lb Heart Rate 88 /min BP Systolic Sitting 122 mmHg BP Diastolic Sitting 84 mmHg Respiratory Rate 14 /min Pain Level 0 BMI (Body Mass Index) 28.0 kg/m2 01/06/2018 Height 61 inches 5'1" Weight 154.38 lb Heart Rate 104 /min BP Systolic Sitting 120 mmHg BP Diastolic Sitting 80 mmHg Respiratory Rate 14 /min Pain Level 3 BMI (Body Mass Index) 29.2 kg/m2 12/18/2017 Height 61 inches 5'1" Weight 150.00 lb Heart Rate 104 /min BP Systolic 124 mmHg BP Diastolic 80 mmHg Respiratory Rate 14 /min BMI (Body Mass Index) 28.3 kg/m2 12/06/2017 Height 61 inches 5'1" Weight 150.12 lb Heart Rate 84 /min BP Systolic Sitting 116 mmHg BP Diastolic Sitting 72 mmHg Respiratory Rate 16 /min BMI (Body Mass Index) 28.4 kg/m2 06/05/2017 Height 61 inches 5'1" Weight 150.00 lb Heart Rate 84 /min BP Systolic Sitting 118 mmHg BP Diastolic Sitting 88 mmHg Respiratory Rate 16 /min BMI (Body Mass Index) 28.3 kg/m2 02/01/2017 Height 61 inches 5'1" Weight 150.00 lb Heart Rate 80 /min BP Systolic Sitting 118 mmHg BP Diastolic Sitting 88 mmHg Respiratory Rate 14 /min BMI (Body Mass Index) 28.3 kg/m2 12/19/2016 Height 61 inches 5'1" Weight 148.25 lb Heart Rate 67 /min BP Systolic Sitting 128 mmHg BP Diastolic Sitting 72 mmHg Respiratory Rate 17 /min BMI (Body Mass Index) 28.0 kg/m2 12/07/2016 Height 61 inches 5'1" Weight 151.12 lb Heart Rate 66 /min BP Systolic Sitting 110 mmHg BP Diastolic Sitting 70 mmHg Respiratory Rate 17 /min BMI (Body Mass Index) 28.6 kg/m2 02/29/2016 Height 61 inches 5'1" Weight 134.38 lb Heart Rate 72 /min BP Systolic Sitting 106 mmHg BP Diastolic Sitting 76 mmHg Respiratory Rate 14 /min BMI (Body Mass Index) 25.4 kg/m2 08/31/2015 Height 61 inches 5'1" Weight 143.00 lb Heart Rate 80 /min BP Systolic Sitting 132 mmHg BP Diastolic Sitting 76 mmHg Respiratory Rate 16 /min BMI (Body Mass Index) 27.0 kg/m2 03/16/2015 Height 61 inches 5'1" Heart Rate 68 /min BP Systolic Sitting 116 mmHg BP Diastolic Sitting 72 mmHg Respiratory Rate 16 /min 09/13/2014 Height 61 inches 5'1" Weight 143.00 lb Heart Rate 72 /min BP Systolic Sitting 122 mmHg BP Diastolic Sitting 70 mmHg Respiratory Rate 16 /min BMI (Body Mass Index) 27.0 kg/m2 02/03/2014 Height 61 inches 5'1" Weight 138.00 lb Heart Rate 92 /min BP Systolic Sitting 112 mmHg BP Diastolic Sitting 78 mmHg Respiratory Rate 16 /min BMI (Body Mass Index) 26.1 kg/m2 09/03/2013 Heart Rate 67 /min BP Systolic Sitting 110 mmHg BP Diastolic Sitting 70 mmHg Respiratory Rate 18 /min 12/25/2012 Heart Rate 76 /min BP Systolic Sitting 112 mmHg BP Diastolic Sitting 76 mmHg Respiratory Rate 16 /min 12/03/2012 Heart Rate 76 /min BP Systolic Sitting 114 mmHg BP Diastolic Sitting 78 mmHg Respiratory Rate 14 /min Results Test Date Test Result H/L Range Note Laboratory test finding 01/14/2018 Ammonia 118 mcmol/L High 16-53 1, 2 Lactic Acid 2.4 mmol/L High 0.5-2.0 1, 3 Laboratory test finding 01/14/2018 Ammonia TNP mcmol/L 16-53 4, 5 Lactic Acid 3.4 mmol/L High 0.5-2.0 4, 6 Ssa/SSB Abs Igg 01/06/2018 SS-A/Ro Antibody <0.2 U 7 SS-B/La Antibody <0.2 U 8 Celiac Panel 01/06/2018 Tissue Transglutaminase IgA Ab <1.2 U/mL 9 Immunoglobulin A 148 mg/dL 61 - 356 Celiac Interpretation See Comment 10 Tick-Borne Panel PCR Blood 01/06/2018 Babesia microti PCR Negative Negative Babesia ducani Negative Negative Babesia divergens/Mo-1 Negative Negative 11 Anaplasma phagocytophilum Negative Negative Ehrlichia chaffeensis Negative Negative Ehrlichia ewingii/canis Negative Negative Ehrlichia muris-like Negative Negative 12 B. miyamotoi PCR, B Negative Negative 13 Laboratory test finding 01/06/2018 Ferritin 68.1 ng/mL 11-307 14 Ascorbic Acid (Vitamin C) 0.8 mg/dL 0.4 - 2.0 15 LD Isoenzymes 01/06/2018 LDH 140 U/L 122 - 222 LD 1 25.6 % 17.5-28.3 LD 2 30.0 % 30.4-36.4 LD 3 20.2 % 19.2-24.8 LD 4 10.7 % 9.6-15.6 LD 5 13.5 % 5.5-12.7 16 Laboratory test finding 01/06/2018 Free Cortisol Serum 0.194 g/dL 17 Lactic Acid 1.2 mmol/L 0.5-2.0 18 Carnitine Free & Total 01/06/2018 Total Carnitine 27 nmol/mL 34-78 Free Carnitine 23 nmol/mL 25-54 Acylcarnitine 4 nmol/mL 5-30 Acylcarn/Free Carnitine Ratio 0.2 0.1-0.8 Carnitine Interpretation See Comment 19 Celiac Hla 01/06/2018 [id number] SEE BELOW 20 [id number] SEE BELOW 21 Celiac Gene Pairs Present? Yes Celiac Gene Interpretation See Comment 22 Laboratory test finding 01/06/2018 Creatine Kinase(CK) 42 U/L 10-223 23 Anca AB Ser If 01/06/2018 C-Anca Negative Negative P-Anca Negative Negative 24 Laboratory test finding 01/06/2018 Homocysteine 6 mcmol/L 25 MTHFR Mutation Detection 01/06/2018 MTHFR [id number] Mutation Negative Negative MTHFR Interpretation See Comment 26 MTHFR Reviewed By Barbraa Jenkins M.D. 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 28 Laboratory test finding 01/06/2018 Thyroperoxidase AB 0.16 IU/mL <9 29 Vitamin D, 1,25 Dihydroxy 53 pg/mL 18-78 30 C Reactive Protein 10.41 mg/L High < 5.00 31 Protein Electrophoresis 01/06/2018 Total Protein(Pep) 7.5 g/dL 6.3 - 7.9 Albumin 3.5 g/dL 3.4-4.7 Alpha-1 Globulin 0.3 g/dL 0.1-0.3 Alpha-2 Globulin 1.3 g/dL 0.6-1.0 Beta Globulin 1.0 g/dL 0.7-1.2 Gamma Globulin 1.4 g/dL 0.6-1.6 Albumin/Globulin Ratio 0.88 Impression See Comment 32 Vitamin B12 And Folate Serum 12/09/2017 Vitamin B12 206 pg/mL 180-914 33 Folic Acid (Folate) 7.45 ng/mL >3.99 Laboratory test finding 12/09/2017 Homocysteine 7 mcmol/L 34 Methylmalonic Acid Mma 0.20 nmol/mL <=0.40 35 Laboratory test finding 08/30/2017 C Reactive Protein 8.87 mg/L High < 5.00 36 Urinalysis Profile 08/30/2017 Urine Color Yellow Urine Appearance Cloudy Urine Specific [place] 1.018 1.010-1.030 Urine pH 5.0 5-9 Urine Urobilinogen Negative Negative Urine Ketones Negative Negative Urine Protein Negative Negative Urine Leukocytes 1+ Negative Urine Blood 1+ Negative Urine Nitrite Negative Negative Urine Bilirubin Negative Negative Urine Glucose Negative Negative Urine White Blood Cell Trace(0-5/hpf) Absent Urine Red Blood Cell 2+(6-10/hpf) Absent Urine Bacteria 1+ Absent Urine Squamous Epithelial Cell Present Absent Urine Calcium Oxalate Cryst Present Absent Laboratory test finding 08/30/2017 Creatine Kinase(CK) 64 U/L 10-223 CBC Auto Diff 08/30/2017 White Blood Count 10.6 10^3/uL 3.5-10.8 Red Blood Count 4.98 10^6/uL 4.0-5.4 Hemoglobin 15.0 g/dL 12.0-16.0 Hematocrit 43 % 35-47 Mean Corpuscular Volume 86 fL 80-97 Mean Corpuscular Hemoglobin 30 pg 27-31 Mean Corpuscular HGB Conc 35 g/dL 31-36 Red Cell Distribution Width 14 % 10.5-15 Platelet Count 375 10^3/uL 150-450 Mean Platelet Volume 9 um3 7.4-10.4 Abs Neutrophils 6.7 10^3/uL 1.5-7.7 Abs Lymphocytes 2.9 10^3/uL 1.0-4.8 Abs Monocytes 0.6 10^3/uL 0-0.8 Abs Eosinophils 0.3 10^3/uL 0-0.6 Abs Basophils 0.1 10^3/uL 0-0.2 Abs Nucleated RBC 0.01 10^3/uL Granulocyte % 63.2 % 38-83 Lymphocyte % 27.3 % 25-47 Monocyte % 5.9 % 1-9 Eosinophil % 2.7 % 0-6 Basophil % 0.9 % 0-2 Nucleated Red Blood Cells % 0.1 Laboratory test finding 08/30/2017 Erythrocyte Sed Rate 3 mm/Hr 0-14 Urine Culture And 08/30/2017 Urine Culture SEE RESULT BELOW 37 Sensitivities Laboratory test finding 08/30/2017 Anti Nuclear Antibody 0.3 U 38 Comp Metabolic Panel 08/30/2017 Sodium 137 mmol/L 133-145 Potassium 3.7 mmol/L 3.5-5.0 Chloride 108 mmol/L 101-111 Co2 Carbon Dioxide 21 mmol/L Low 22-32 Anion Gap 8 mmol/L 2-11 Glucose 82 mg/dL 70-100 Blood Urea Nitrogen 15 mg/dL 6-24 Creatinine 0.89 mg/dL 0.51-0.95 BUN/Creatinine Ratio 16.9 8-20 Calcium 9.2 mg/dL 8.6-10.3 Total Protein 7.0 g/dL 6.4-8.9 Albumin 4.3 g/dL 3.2-5.2 Globulin 2.7 g/dL 2-4 Albumin/Globulin Ratio 1.6 1-3 Total Bilirubin 0.20 mg/dL 0.2-1.0 Alkaline Phosphatase 48 U/L 34-104 Alt 6 U/L Low 7-52 Ast 12 U/L Low 13-39 Egfr Non- 73.0 >60 Egfr 93.9 >60 39 CBC Auto Diff 03/29/2017 White Blood Count 12.9 10^3/uL High 3.5-10.8 40 Red Blood Count 4.95 10^6/uL 4.0-5.4 40 Hemoglobin 15.0 g/dL 12.0-16.0 40 Hematocrit 45 % 35-47 40 Mean Corpuscular Volume 90 fL 80-97 40 Mean Corpuscular Hemoglobin 30 pg 27-31 40 Mean Corpuscular HGB Conc 34 g/dL 31-36 40 Red Cell Distribution Width 13 % 10.5-15 40 Platelet Count 362 10^3/uL 150-450 40 Mean Platelet Volume 8 um3 7.4-10.4 40 Abs Neutrophils 9.3 10^3/uL High 1.5-7.7 40 Abs Lymphocytes 2.8 10^3/uL 1.0-4.8 40 Abs Monocytes 0.7 10^3/uL 0-0.8 40 Abs Eosinophils 0.1 10^3/uL 0-0.6 40 Abs Basophils 0.1 10^3/uL 0-0.2 40 Abs Nucleated RBC 0.02 10^3/uL 40 Granulocyte % 71.8 % 38-83 40 Lymphocyte % 21.5 % Low 25-47 40 Monocyte % 5.2 % 1-9 40 Eosinophil % 0.9 % 0-6 40 Basophil % 0.6 % 0-2 40 Nucleated Red Blood Cells % 0.2 40 Laboratory test finding 03/29/2017 C Reactive Protein 14.13 mg/L High < 5.00 40, 41 TSH (Thyroid Stim Horm) 1.36 mcIU/mL 0.34-5.60 40, 42 Lyme Disease Serology Negative Negative 40, 43 Laboratory test finding 01/30/2017 Creatine Kinase(CK) 50 U/L 10-223 Comp Metabolic Panel 01/30/2017 Sodium 137 mmol/L 133-145 Potassium 3.8 mmol/L 3.5-5.0 Chloride 102 mmol/L 101-111 Co2 Carbon Dioxide 26 mmol/L 22-32 Anion Gap 9 mmol/L 2-11 Glucose 87 mg/dL 70-100 Blood Urea Nitrogen 17 mg/dL 6-24 Creatinine 0.71 mg/dL 0.51-0.95 BUN/Creatinine Ratio 23.9 High 8-20 Calcium 9.7 mg/dL 8.6-10.3 Total Protein 7.1 g/dL 6.4-8.9 Albumin 4.4 g/dL 3.2-5.2 Globulin 2.7 g/dL 2-4 Albumin/Globulin Ratio 1.6 1-3 Total Bilirubin 0.30 mg/dL 0.2-1.0 Alkaline Phosphatase 56 U/L 34-104 Alt 10 U/L 7-52 Ast 11 U/L Low 13-39 Egfr Non- 95.4 >60 Egfr 122.7 >60 44 Laboratory test finding 12/12/2016 Erythrocyte Sed Rate 3 mm/Hr 0-14 45 CBC Auto Diff 12/12/2016 White Blood Count 10.0 10^3/uL 3.5-10.8 Red Blood Count 4.95 10^6/uL 4.0-5.4 Hemoglobin 14.7 g/dL 12.0-16.0 Hematocrit 43 % 35-47 Mean Corpuscular Volume 86 fL 80-97 Mean Corpuscular Hemoglobin 30 pg 27-31 Mean Corpuscular HGB Conc 35 g/dL 31-36 Red Cell Distribution Width 13 % 10.5-15 Platelet Count 296 10^3/uL 150-450 Mean Platelet Volume 8 um3 7.4-10.4 Abs Neutrophils 7.0 10^3/uL 1.5-7.7 Abs Lymphocytes 2.2 10^3/uL 1.0-4.8 Abs Monocytes 0.4 10^3/uL 0-0.8 Abs Eosinophils 0.2 10^3/uL 0-0.6 Abs Basophils 0 10^3/uL 0-0.2 Abs Nucleated RBC 0 10^3/uL Granulocyte % 70.3 % 38-83 Lymphocyte % 22.4 % Low 25-47 Monocyte % 4.4 % 1-9 Eosinophil % 2.4 % 0-6 Basophil % 0.5 % 0-2 Nucleated Red Blood Cells % 0 Laboratory test finding 12/12/2016 Creatine Kinase(CK) 40 U/L 10-223 46 Comp Metabolic Panel 12/12/2016 Sodium 135 mmol/L 133-145 Potassium 4.2 mmol/L 3.5-5.0 Chloride 104 mmol/L 101-111 Co2 Carbon Dioxide 25 mmol/L 22-32 Anion Gap 6 mmol/L 2-11 Glucose 67 mg/dL Low 70-100 Blood Urea Nitrogen 13 mg/dL 6-24 Creatinine 0.68 mg/dL 0.51-0.95 BUN/Creatinine Ratio 19.1 8-20 Calcium 9.2 mg/dL 8.6-10.3 Total Protein 6.8 g/dL 6.4-8.9 Albumin 4.2 g/dL 3.2-5.2 Globulin 2.6 g/dL 2-4 Albumin/Globulin Ratio 1.6 1-3 Total Bilirubin 0.50 mg/dL 0.2-1.0 Alkaline Phosphatase 38 U/L 34-104 Alt 7 U/L 7-52 Ast 10 U/L Low 13-39 Egfr Non- 100.3 >60 Egfr 129.0 >60 47 CBC Auto Diff 03/06/2016 White Blood Count 9.6 10^3/uL 3.5-10.8 Red Blood Count 5.15 10^6/uL 4.0-5.4 Hemoglobin 15.4 g/dL 12.0-16.0 Hematocrit 45 % 35-47 Mean Corpuscular Volume 87 fL 80-97 Mean Corpuscular Hemoglobin 30 pg 27-31 Mean Corpuscular HGB Conc 34 g/dL 31-36 Red Cell Distribution Width 13 % 10.5-15 Platelet Count 327 10^3/uL 150-450 Mean Platelet Volume 8 um3 7.4-10.4 Abs Neutrophils 6.1 10^3/uL 1.5-7.7 Abs Lymphocytes 2.6 10^3/uL 1.0-4.8 Abs Monocytes 0.5 10^3/uL 0-0.8 Abs Eosinophils 0.2 10^3/uL 0-0.6 Abs Basophils 0.1 10^3/uL 0-0.2 Abs Nucleated RBC 0.02 10^3/uL Granulocyte % 64.1 % 38-83 Lymphocyte % 26.9 % 25-47 Monocyte % 5.5 % 1-9 Eosinophil % 2.4 % 0-6 Basophil % 1.1 % 0-2 Nucleated Red Blood Cells % 0.2 Comp Metabolic Panel 03/06/2016 Sodium 136 mmol/L 133-145 Potassium 3.8 mmol/L 3.5-5.0 Chloride 107 mmol/L 101-111 Co2 Carbon Dioxide 21 mmol/L Low 22-32 Anion Gap 8 mmol/L 2-11 Glucose 110 mg/dL High 70-100 Blood Urea Nitrogen 13 mg/dL 6-24 Creatinine 0.81 mg/dL 0.51-0.95 BUN/Creatinine Ratio 16.0 8-20 Calcium 9.5 mg/dL 8.6-10.3 Total Protein 7.7 g/dL 6.4-8.9 Albumin 5.0 g/dL 3.2-5.2 Globulin 2.7 g/dL 2-4 Albumin/Globulin Ratio 1.9 1-3 Total Bilirubin 0.80 mg/dL 0.2-1.0 Alkaline Phosphatase 56 U/L 34-104 Alt 9 U/L 7-52 Ast 12 U/L Low 13-39 Egfr Non- 82.5 >60 Egfr 106.1 >60 48 Laboratory test finding 03/06/2016 Creatine Kinase(CK) 51 U/L 10-223 Comp Metabolic Panel 08/31/2015 Sodium 138 mmol/L 133-145 Potassium 4.3 mmol/L 3.5-5.0 Chloride 103 mmol/L 101-111 Co2 Carbon Dioxide 26 mmol/L 22-32 Anion Gap 9 mmol/L 2-11 Glucose 86 mg/dL 70-100 Blood Urea Nitrogen 13 mg/dL 6-24 Creatinine 0.69 mg/dL 0.51-0.95 BUN/Creatinine Ratio 18.8 8-20 Calcium 9.9 mg/dL 8.6-10.3 Total Protein 7.6 g/dL 6.4-8.9 Albumin 4.9 g/dL 3.2-5.2 Globulin 2.7 g/dL 2-4 Albumin/Globulin Ratio 1.8 1-3 Total Bilirubin 0.40 mg/dL 0.2-1.0 Alkaline Phosphatase 60 U/L 34-104 Alt 11 U/L 7-52 Ast 14 U/L 13-39 Egfr Non- 99.2 >60 Egfr 127.6 >60 49 CBC Auto Diff 08/31/2015 White Blood Count 8.6 10^3/uL 3.5-10.8 Red Blood Count 5.14 10^6/uL 4.0-5.4 Hemoglobin 15.5 g/dL 12.0-16.0 Hematocrit 46 % 35-47 Mean Corpuscular Volume 89 fL 80-97 Mean Corpuscular Hemoglobin 30 pg 27-31 Mean Corpuscular HGB Conc 34 g/dL 31-36 Red Cell Distribution Width 13 % 10.5-15 Platelet Count 368 10^3/uL 150-450 Mean Platelet Volume 8 um3 7.4-10.4 Abs Neutrophils 5.6 10^3/uL 1.5-7.7 Abs Lymphocytes 2.3 10^3/uL 1.0-4.8 Abs Monocytes 0.5 10^3/uL 0-0.8 Abs Eosinophils 0.2 10^3/uL 0-0.6 Abs Basophils 0.1 10^3/uL 0-0.2 Abs Nucleated RBC 0.01 10^3/uL Granulocyte % 64.5 % 38-83 Lymphocyte % 26.7 % 25-47 Monocyte % 5.9 % 1-9 Eosinophil % 1.9 % 0-6 Basophil % 1.0 % 0-2 Nucleated Red Blood Cells % 0.1 Laboratory test finding 08/31/2015 Creatine Kinase(CK) 67 U/L 10-223 50 Laboratory test finding 08/31/2015 TSH (Thyroid Stim Horm) 1.20 ?IU/mL 0.34-5.60 51 Comp Metabolic Panel 09/11/2014 Sodium 137 mmol/L 133-145 Potassium 3.7 mmol/L 3.5-5.0 Chloride 103 mmol/L 101-111 Co2 Carbon Dioxide 27 mmol/L 22-32 Anion Gap 7 mmol/L 2-11 Glucose 79 mg/dL 70-100 Blood Urea Nitrogen 10 mg/dL 6-24 Creatinine 0.67 mg/dL 0.51-0.95 BUN/Creatinine Ratio 14.9 8-20 Calcium 9.7 mg/dL 8.6-10.3 Total Protein 7.7 g/dL 6.4-8.9 Albumin 4.8 g/dL 3.2-5.2 Globulin 2.9 g/dL 2-4 Albumin/Globulin Ratio 1.7 1-3 Total Bilirubin 0.50 mg/dL 0.2-1.0 Alkaline Phosphatase 57 U/L 34-104 Alt 13 U/L 7-52 Ast 13 U/L 13-39 Egfr Non- 103.3 >60 Egfr 132.9 >60 52 Laboratory test finding 09/11/2014 Creatine Kinase 57 U/L 10-223 Laboratory test finding 04/20/2014 Follicle Stimulating Hormone 8.4 IU/mL 53 Luteinizing Hormone 8.0 IU/mL 54 Estradiol 40.000 pg/mL 55 Laboratory test finding 04/08/2014 Follicle Stimulating Hormone 4.1 IU/mL 56 Luteinizing Hormone 8.4 IU/mL 57 Prolactin 7.0 ng/mL 1.0-25.0 TSH (Thyroid Stimulating Horm) 1.02 IU/mL 0.34-5.60 Estradiol 238.000 pg/mL 58 Laboratory test finding 04/08/2014 Serum Negative Negative 59 Lipid Profile (Trig/Chol/HDL) 04/08/2014 Triglycerides 127 mg/dL 60 Cholesterol 210 mg/dL 61 HDL Cholesterol 50.5 mg/dL 62 LDL Cholesterol 134 mg/dL 63 CMP Panel 02/08/2014 Sodium 137 mmol/L 133-145 Potassium 4.3 mmol/L 3.7-5.6 Chloride 103 mmol/L 101-111 Co2 Carbon Dioxide 27 mmol/L 22-32 Anion Gap 7 mmol/L 2-11 Glucose 74 mg/dL 70-100 Blood Urea Nitrogen 15 mg/dL 6-24 Creatinine 0.74 mg/dL 0.51-0.95 BUN/Creatinine Ratio 20.3 High 8-20 Calcium 9.7 mg/dL 8.6-10.3 Total Protein 7.3 g/dL 6.4-8.9 Albumin 4.8 g/dL 3.2-5.2 Globulin 2.5 g/dL 2-4 Albumin/Globulin Ratio 1.9 1-3 Total Bilirubin 0.90 mg/dL 0.2-1.0 Alkaline Phosphatase 49 U/L 34-104 Alt 16 U/L 7-52 Ast 15 U/L 13-39 Egfr Non- 92.8 >60 Egfr 119.3 >60 64 Laboratory test finding 02/08/2014 Creatine Kinase 52 U/L 10-223 Comp Metabolic Panel 06/26/2013 Sodium 141 mmol/L 133-145 Potassium 3.6 mmol/L 3.5-5.0 Chloride 110 mmol/L 101-111 Co2 Carbon Dioxide 24.0 mmol/L 22-32 Anion Gap 7.0 mmol/L 2-11 Glucose 93 mg/dL 70-100 Blood Urea Nitrogen 18 mg/dL 6-24 Creatinine 0.70 mg/dL 0.50-1.40 BUN/Creatinine Ratio 25.7 High 8-20 Calcium 9.7 mg/dL 8.1-9.9 Total Protein 7.5 g/dL 6.2-8.1 Albumin 4.4 g/dL 3.6-5.4 Globulin 3.1 g/dL 2-4 Albumin/Globulin Ratio 1.4 1-3 Total Bilirubin 1.1 mg/dL 0.4-1.5 Alkaline Phosphatase 60 U/L 30-110 Alt 12 U/L Low 14-54 Ast 15 U/L 12-42 Egfr Non- 98.9 >60 Egfr 127.2 >60 65 Laboratory test finding 12/29/2012 Creatine Kinase 47 U/L 0-200 Laboratory test finding 12/02/2012 Creatine Kinase 338 U/L High 0-200 Laboratory test finding 12/02/2012 Ceruloplasmin 24.8 mg/dL 66 Vitamin E Level 11.3 mg/L 5.5 - 17.0 67 Copper 24HR Urine 12/02/2012 Urine Copper 24HR Not Detected mcg/spec 15- 60 Urine Collection Duration 24 h Urine Volume 2350 mL Urine Copper (Ug/L) <5 g/L 15-60 68 Laboratory test finding 12/02/2012 Ceruloplasmin 24.8 mg/dL 69 Vitamin E Level 11.3 mg/L 5.5 - 17.0 70 1 Comment: 10 minute 2 Comment: 10 minute 3 Critical Result LACT:2.4 Called to [id number] at: 15:51:13 by:[id number] Read back by:tabulate [facility] Severe Sepsis and Septic Shock Management Bundle Measure requires all lactic acids initially measuring >2.0 mmol/L be repeated. 4 Comment: 3 minute 5 Unable to report test result due to hemolysis. 6 Critical Result LACT:3.4 Called to tabulate at: 15:51:30 by:[id number] Read back by:tabulate [facility] Severe Sepsis and Septic Shock Management Bundle Measure requires all lactic acids initially measuring >2.0 mmol/L be repeated. 7 REFERENCE VALUE <1.0 (Negative) 8 REFERENCE VALUE <1.0 (Negative) Test Performed by: [address] [address] 9 REFERENCE VALUE <4.0 (Negative) Test Performed by: [address] [id number] 10 Negative serology. Celiac disease unlikely. However, approximately 10% of patients with celiac disease are seronegative. Also, patients who are already adhering to a gluten-free diet may be seronegative. If celiac disease is highly clinically suspected, consider HLA-DQ typing. Test Performed by: [facility] - [address] [address] 11 ADDITIONAL INFORMATION This test was developed and its performance characteristics determined by [facility] in a manner consistent with CLIA requirements. This test has not been cleared or approved by the U.S. Food and Drug Administration. 12 ADDITIONAL INFORMATION This test was developed and its performance characteristics determined by [facility] in a manner consistent with CLIA requirements. This test has not been cleared or approved by the U.S. Food and Drug Administration. 13 ADDITIONAL INFORMATION This test was developed and its performance characteristics determined by [facility] in a manner consistent with CLIA requirements. This test has not been cleared or approved by the U.S. Food and Drug Administration. Test Performed by: [facility] - [address] [address] 14 Please check labs this week 15 ADDITIONAL INFORMATION This test was developed and its performance characteristics determined by [facility] in a manner consistent with CLIA requirements. This test has not been cleared or approved by the U.S. Food and Drug Administration. Test Performed by: [facility] [address] [place] [address] 16 Test Performed by: [facility] - [address] [address] 17 REFERENCE VALUE 6:00-10:30 AM Collection 0.121-1.065 mcg/dL ADDITIONAL INFORMATION This test was developed and its performance characteristics determined by [facility] in a manner consistent with CLIA requirements. This test has not been cleared or approved by the U.S. Food and Drug Administration. Test Performed by: [facility] - [facility] [address] [place] [address] [facility] Severe Sepsis and Septic Shock Management Bundle Measure requires all lactic acids initially measuring >2.0 mmol/L be repeated. 19 In this sample, the carnitine profile was essentially normal. ADDITIONAL INFORMATION This test was developed and its performance characteristics determined by [facility] in a manner consistent with CLIA requirements. This test has not been cleared or approved by the U.S. Food and Drug Administration. Test Performed by: [facility] - [address] [address] 20 RESULT: 02:01,02:01 REFERENCE VALUE Not Applicable 21 RESULT: 02:02,02:02 DQ Serologic Equivalent: 2,2 REFERENCE VALUE Not Applicable 22 These genes are permissive for celiac disease. The absence of HLA celiac permissive genes would make the presence of celiac disease unlikely. However, these genes can also be present in the normal population. ADDITIONAL INFORMATION Method: Molecular typing of HLA antigens performed using reverse SSOP and/or SSP methods, reported as serological equivalents and low to medium resolution molecular values. Performing Laboratory CLIA# [id number] Test Performed by: [facility] - [address] [address] 23 Please check labs this week 24 Negative for cANCA and pANCA patterns by immunofluorescence. ADDITIONAL INFORMATION This test was developed and its performance characteristics determined by [facility] in a manner consistent with CLIA requirements. This test has not been cleared or approved by the U.S. Food and Drug Administration. Test Performed by: [facility] - [address] [address] 25 REFERENCE VALUE <=13 (Fasting) ADDITIONAL INFORMATION This test was developed and its performance characteristics determined by [facility] in a manner consistent with CLIA requirements. This test has not been cleared or approved by the U.S. Food and Drug Administration. Test Performed by: [facility] - [address] [address] 26 This individual DOES NOT have the Methylenetetrahydrofolate reductase (MTHFR) C677T gene mutation. In the absence of the MTHFR C677T gene mutation, other causes of hyperhomocysteinemia should be considered (renal failure, zinc deficiency, leukemia, psoriasis, or antifolate drug therapy). If clinically indicated, suggest Coagulation Consultation 35166 (Thrombophilia Profile) to complete the evaluation for an inherited or acquired thrombosing disorder (i.e., thrombophilia). Consider genetic consultation and counseling of potentially affected family members regarding laboratory testing. ADDITIONAL INFORMATION This test is a direct mutation analysis using PCR amplification, signal generation and release by cleavage of sequence specific alleles ([employer], [employer], [place], [place]). This test has been modified from the vice president corporate communications's instructions. Its performance characteristics were determined by [facility] in a manner consistent with CLIA requirements. This test has not been cleared or approved by the U.S. Food and Drug Administration. 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 MTHAC W2287V carriers are not at increased risk for thrombosis in the absence of hyperhomocysteinemia. In the absence of alternative causes, heterozygous carriers of MTHAC H9541C are not at increased risk for hyperhomocysteinemia. Hyperhomocysteinemia is a relatively weak risk factor for both venous thromboembolism and arterial thrombosis. The MTHAC K5622O gene mutation test does not detect other causes of hyperhomocysteinemia due to acquired disorders (renal failure, zinc deficiency, leukemia, psoriasis, or antifolate drug therapy). If clinically indicated, suggest Coagulation Consultation 40869 (Thrombophila Profile) to complete the evaluation for an inherited or acquired thrombosing disorder (i.e., thrombophilia). Consider genetic consultation and counseling of potentially affected family members regarding laboratory testing. ADDITIONAL INFORMATION This test is a direct mutation analysis using PCR amplification, signal generation and release by cleavage of sequence specific alleles ([employer], [employer], [place], [place]). This test has been modified from the vice president corporate communications's instructions. Its performance characteristics were determined by [facility] in a manner consistent with CLIA requirements. This test has not been cleared or approved by the U.S. Food and Drug Administration. 28 This test is a direct mutation analysis using PCR amplification, signal generation and release by cleavage of sequence specific alleles ([employer], [employer], [place], [place]). This test has been modified from the vice president corporate communications's instructions. Its performance characteristics were determined by [facility] in a manner consistent with CLIA requirements. This test has not been cleared or approved by the U.S. Food and Drug Administration. Test Performed by: [facility] - [address] [address] 29 Please check labs this week ADDITIONAL INFORMATION This test was developed and its performance characteristics determined by [facility] in a manner consistent with CLIA requirements. This test has not been cleared or approved by the U.S. Food and Drug Administration. Test Performed by: [facility] - [facility] [address] [place] [address] 31 Acute inflammation: >10.00 32 RESULT: No apparent monoclonal protein on serum electrophoresis. Test Performed by: [facility] - [address] [address] 33 Normal Range 180 to 914 Indeterminate Range 145 to 180 Deficient Range <145 34 REFERENCE VALUE <=13 (Fasting) ADDITIONAL INFORMATION This test was developed and its performance characteristics determined by [facility] in a manner consistent with CLIA requirements. This test has not been cleared or approved by the U.S. Food and Drug Administration. Test Performed by: [facility] - [address] [address] 35 ADDITIONAL INFORMATION This test was developed and its performance characteristics determined by [facility] in a manner consistent with CLIA requirements. This test has not been cleared or approved by the U.S. Food and Drug Administration. Test Performed by: [facility] - [address] [address] 36 Acute inflammation: >10.00 37 SEE RESULT BELOW Name: TOOTIE GUERRERO : [address]: Yuli Tinsley MD Acct: [id number] Unit: [id number] AGE: 32 Location: [facility] Re08/30/17 SEX: F Status: REG REF SPEC: [id number] NISA: 08/30/[address]: Cherry Schmitt MD REQ: [id number] RECD: 08/30/17 STATUS: CLARK ORELLANA DR: Yuli Tinsley MD _ SOURCE: URINE SPDESC: ORDERED: Urine Culture Procedure Result Reported Site Urine Culture Final 08/31/17- 1648 ML No Growth (<1,000 CFU/mL) * ML - MAIN LAB ([facility]) . END OF REPORT * ML=Testing performed at Main Lab DEPARTMENT OF PATHOLOGY, [address] [place] [address] Tavo Holland M.D. Director [facility] # [id number] 38 REFERENCE VALUE <=1.0 (Negative) Test Performed by: [address] [address] 39 Because ethnic data is not always readily available, this report includes an eGFR for both -Americans and non- Americans. The National Kidney Disease Education Program (NKDEP) does not endorse the use of the MDRD equation for patients that are not between the ages of 18 and 70, are , have extremes of body size, muscle mass, or nutritional status, or are non- or non-. According to the National Kidney Foundation, irrespective of diagnosis, the stage of the disease is based on the level of kidney function: Stage Description GFR(mL/min/1.73 m(2)) 1 Kidney damage with normal or decreased GFR 90 2 Kidney damage with mild decrease in GFR 60-89 3 Moderate decrease in GFR 30-59 4 Severe decrease in GFR 15-29 5 Kidney failure <15 (or dialysis) 40 [id number] Acute inflammation: >10.00 42 [id number] 43 Serologic response to B. burgdorferi infection is not detected, but cannot rule out early infection during which low or undetectable antibody levels to B. burgdorferi may be present. If clinically indicated, a new serum specimen should be submitted in 7-14 days. Test Performed by: [address] [address] 44 Because ethnic data is not always readily available, this report includes an eGFR for both -Americans and non- Americans. The National Kidney Disease Education Program (NKDEP) does not endorse the use of the MDRD equation for patients that are not between the ages of 18 and 70, are , have extremes of body size, muscle mass, or nutritional status, or are non- or non-. According to the National Kidney Foundation, irrespective of diagnosis, the stage of the disease is based on the level of kidney function: Stage Description GFR(mL/min/1.73 m(2)) 1 Kidney damage with normal or decreased GFR 90 2 Kidney damage with mild decrease in GFR 60-89 3 Moderate decrease in GFR 30-59 4 Severe decrease in GFR 15-29 5 Kidney failure <15 (or dialysis) 45 FASTING Copy Result to: MAYO SÁNCHEZ ([id number]) 46 FASTING Copy Result to: MAYO SÁNCHEZ ([id number]) 47 Because ethnic data is not always readily available, this report includes an eGFR for both -Americans and non- Americans. The National Kidney Disease Education Program (NKDEP) does not endorse the use of the MDRD equation for patients that are not between the ages of 18 and 70, are , have extremes of body size, muscle mass, or nutritional status, or are non- or non-. According to the National Kidney Foundation, irrespective of diagnosis, the stage of the disease is based on the level of kidney function: Stage Description GFR(mL/min/1.73 m(2)) 1 Kidney damage with normal or decreased GFR 90 2 Kidney damage with mild decrease in GFR 60-89 3 Moderate decrease in GFR 30-59 4 Severe decrease in GFR 15-29 5 Kidney failure <15 (or dialysis) 48 Because ethnic data is not always readily available, this report includes an eGFR for both -Americans and non- Americans. The National Kidney Disease Education Program (NKDEP) does not endorse the use of the MDRD equation for patients that are not between the ages of 18 and 70, are , have extremes of body size, muscle mass, or nutritional status, or are non- or non-. According to the National Kidney Foundation, irrespective of diagnosis, the stage of the disease is based on the level of kidney function: Stage Description GFR(mL/min/1.73 m(2)) 1 Kidney damage with normal or decreased GFR 90 2 Kidney damage with mild decrease in GFR 60-89 3 Moderate decrease in GFR 30-59 4 Severe decrease in GFR 15-29 5 Kidney failure <15 (or dialysis) 49 Because ethnic data is not always readily available, this report includes an eGFR for both -Americans and non- Americans. The National Kidney Disease Education Program (NKDEP) does not endorse the use of the MDRD equation for patients that are not between the ages of 18 and 70, are , have extremes of body size, muscle mass, or nutritional status, or are non- or non-. According to the National Kidney Foundation, irrespective of diagnosis, the stage of the disease is based on the level of kidney function: Stage Description GFR(mL/min/1.73 m(2)) 1 Kidney damage with normal or decreased GFR 90 2 Kidney damage with mild decrease in GFR 60-89 3 Moderate decrease in GFR 30-59 4 Severe decrease in GFR 15-29 5 Kidney failure <15 (or dialysis) 50 Copy Result to: MAYO SÁNCHEZ ([id number]) 51 Copy Result to: MAYO SÁNCHEZ ([id number]) 52 Because ethnic data is not always readily available, this report includes an eGFR for both -Americans and non- Americans. The National Kidney Disease Education Program (NKDEP) does not endorse the use of the MDRD equation for patients that are not between the ages of 18 and 70, are , have extremes of body size, muscle mass, or nutritional status, or are non- or non-. According to the National Kidney Foundation, irrespective of diagnosis, the stage of the disease is based on the level of kidney function: Stage Description GFR(mL/min/1.73 m(2)) 1 Kidney damage with normal or decreased GFR 90 2 Kidney damage with mild decrease in GFR 60-89 3 Moderate decrease in GFR 30-59 4 Severe decrease in GFR 15-29 5 Kidney failure <15 (or dialysis) 53 Normally menstruating females - Follicular phase 3 - 9 - Mid-cycle peak 4 - 23 - Luteal phase 1 - 6 Postmenopausal females 16 - 114 54 Normally menstruating females - Follicular Phase 1 - 18 - Mid-Cycle Peak 24 - 105 - Luteal Phase 0.6 - 20 Postmenopausal females 15 - 62 55 Postmenopausal Females < 20 Ovulating females: by day in cycle relative to LH Peak Follicular phase - 12 10-50 - 4 60-200 Mid-cycle - 1 120-375 Luteal phase + 2 50-155 + 6 60-260 + 12 15-115 56 Normally menstruating females - Follicular phase 3 - 9 - Mid-cycle peak 4 - 23 - Luteal phase 1 - 6 Postmenopausal females 16 - 114 57 Normally menstruating females - Follicular Phase 1 - 18 - Mid-Cycle Peak 24 - 105 - Luteal Phase 0.6 - 20 Postmenopausal females 15 - 62 58 Postmenopausal Females < 20 Ovulating females: by day in cycle relative to LH Peak Follicular phase - 12 10-50 - 4 60-200 Mid-cycle - 1 120-375 Luteal phase + 2 50-155 + 6 60-260 + 12 15-115 59 This test detects intact HCG only and is indicated for the early detection of . 60 Desirable <150 Borderline high 150-199 High 200-499 Very High >500 61 Desirable <200 Borderline high 200-239 High >239 62 Low <40 Desirable: 40-60 High: >60 63 Desirable <100 Near Optimal 100-129 Borderline high 130-159 High 160-189 Very High >189 64 Because ethnic data is not always readily available, this report includes an eGFR for both -Americans and non- Americans. The National Kidney Disease Education Program (NKDEP) does not endorse the use of the MDRD equation for patients that are not between the ages of 18 and 70, are , have extremes of body size, muscle mass, or nutritional status, or are non- or non-. According to the National Kidney Foundation, irrespective of diagnosis, the stage of the disease is based on the level of kidney function: Stage Description GFR(mL/min/1.73 m(2)) 1 Kidney damage with normal or decreased GFR 90 2 Kidney damage with mild decrease in GFR 60-89 3 Moderate decrease in GFR 30-59 4 Severe decrease in GFR 15-29 5 Kidney failure <15 (or dialysis) 65 Because ethnic data is not always readily available, this report includes an eGFR for both -Americans and non- Americans. The National Kidney Disease Education Program (NKDEP) does not endorse the use of the MDRD equation for patients that are not between the ages of 18 and 70, are , have extremes of body size, muscle mass, or nutritional status, or are non- or non-. According to the National Kidney Foundation, irrespective of diagnosis, the stage of the disease is based on the level of kidney function: Stage Description GFR(mL/min/1.73 m(2)) 1 Kidney damage with normal or decreased GFR 90 2 Kidney damage with mild decrease in GFR 60-89 3 Moderate decrease in GFR 30-59 4 Severe decrease in GFR 15-29 5 Kidney failure <15 (or dialysis) 66 -- REFERENCE VALUE -- 16.0 - 45.0 Test Performed by: [place] [address] Research Development Director: Daniel Yee III, M.D. 67 Test Performed by: [place] [address] Research Development Director: Doris Power, Ph.D. 68 Test Performed by: [place] [address] Research Development Director: Daniel Yee III, M.D. 69 -- REFERENCE VALUE -- 16.0 - 45.0 Test Performed by: [place] [address] Research Development Director: Daniel Yee III, M.D. 70 Test Performed by: [place] [address] Research Development Director: Doris Power, Ph.D. Procedures Date CPT Code Description Status 05/07/2018 Colonoscopy Completed 01/08/2013 17410 Nerve Conduction 03-04 Studies Completed 01/08/2013 44761 Needle Electromyography Complete, Five Or More Muscles Completed Studied 06/04/2007 34372 Color Doppler Completed 06/04/2007 66622 Color Doppler Completed 06/04/2007 07547 Color Doppler Completed 06/04/2007 00636 Pulse Doppler & Continuous Wave Completed 06/04/2007 99601 Pulse Doppler & Continuous Wave Completed 06/04/2007 42074 Echocardiogram Completed 06/04/2007 24730 Echocardiogram Completed 06/04/2007 87398 Echocardiogram Completed Encounters Type Date Location Provider CPT E/M Dx Office Visit 04/03/2018 [facility] Josr Hampton M.D. 85849 G24.9 4:20p Of Insurance Commissioner R79.82 R53.1 Office Visit 01/06/2018 1:00p [facility] Hampton 65522 G24.9 Insurance Commissioner Son R79.82 E53.8 R53.1 Office Visit 12/18/2017 11:45a [facility] Yuli Tinsley M.D. 30012 G24.9 Services Of Insurance Commissioner R29.2 E53.8 Office Visit 12/06/2017 3:45p [facility] Yuli Tinsley M.D. 22940 G24.9 Services Of Insurance Commissioner R29.2 Office Visit 06/05/2017 11:45a [facility] Yuli Tinsley M.D. 34355 G24.9 Services Of Insurance Commissioner Z79.899 Office Visit 02/01/2017 3:00p [facility] Kaycee Tinsley M.D. 14491 G50.0 Services Of Insurance Commissioner G24.9 Office Visit 12/19/2016 12:30p [facility] Yuli Tinsley M.D. 06062 G50.0 Services Of Insurance Commissioner G24.9 Office Visit 12/07/2016 2:30p [facility] Yuli Tinsley M.D. 71838 G24.9 Services Of Insurance Commissioner G44.209 G50.0 R53.1 R29.2 Office Visit 02/29/2016 3:45p [place] Kaycee Tinsley M.D. 84870 G24.9 Services Of Insurance Commissioner R25.2 G44.209 Office Visit 08/31/2015 11:30a [place] Kaycee Tinsley M.D. 69310 G24.9 Services Of Insurance Commissioner N92.0 Office Visit 03/16/2015 11:30a [facility] Yuli Tinsley M.D. 59777 729.82 Services Of Insurance Commissioner 333.89 728.89 Office Visit 09/13/2014 1:00p Brittney Tinsley M.D. 71034 729.82 Services Of Insurance Commissioner 333.89 Office Visit 02/03/2014 11:45a Brittney Tinsley M.D. 69153 729.82 Services Of Insurance Commissioner 333.89 728.89 Office Visit 09/03/2013 3:45p [facility] Yuli Tinsley M.D. 69717 333.79 Services Of Insurance Commissioner Office Visit 06/04/2013 3:45p [facility] Yuli Tinsley M.D. 83036 333.79 Services Of Insurance Commissioner Office Visit 03/16/2013 3:45p [facility] Kermit Jones M.D. 29932 844.9 AT [place] Office Visit 03/05/2013 8:30a [facility] Yuli Tinsley M.D. 08214 333.79 Services Of Insurance Commissioner Office Visit 03/02/2013 3:15p [facility] Kermit Jones M.D. 19934 844.9 AT [place] Office Visit 01/08/2013 9:30a [facility] Yuli Tinsley M.D. 16863 782.0 Services Of Insurance Commissioner 729.82 Office Visit 12/25/2012 4:00p [facility] Yuli Tinsley M.D. 74051 729.82 Services Of Insurance Commissioner Office Visit 12/03/2012 4:00p [facility] Yuli Tinsley M.D. 70616 333.79 Services Of Insurance Commissioner 728.88 Office Visit 11/29/2012 2:18p [facility] Darien Angulo, 56343 333.79 Services Of Insurance Commissioner M.DAnat Office Visit 11/29/2012 9:47a [facility] Angelika Castillo, 30105 333.89 Assoc, Hospitalists Son 785.9 728.89 Office Visit 11/28/2012 2:17p [facility] Yuli Tinsley M.D. 63381 333.79 Services Of Insurance Commissioner 728.88 Office Visit 11/28/2012 9:46a [place], [address] 728.89 Assoc, Hospitalists Son 780.96 Plan of Care 07/08/2018 - Yuli Tinsley M.D.G24.9 Dystonia, unspecifiedNew Labs:Comp Metabolic PanelReferral:Yony Sandy MD, NeurologyFollow up:after DR. Sandy's consult.R53.1 PeyxfzixM15.83 Other epvydfwM13.2 Cramp and spasm
[2018-07-30] MEDS ORDERED: Pantoprazole IV* 40 MG IV ONE (09:25)
[2018-07-30] MEDS ORDERED: NS 0.9% 1000 ML* 1,000 ML IV ONE ×3 (09:25→12:36)
[2018-07-30] MEDS ORDERED: Ondansetron INJ* 2 MG/ML VIAL IV ONE (09:25)
--- NOTE | 2018-07-30 09:38 | ED ---
GI/ HPI - HPI Summary HPI Summary: Patient is a 33 y/o F w/ c/o N/V/D, body aches, lower back pain and dizziness for the past 24 hours. She also notes decreased PO food/fluid intake. Emesis is described as a black bile, she denies coffee-ground emesis. No previous similar episodes reported. Dizziness is described as room-spinning. PMHx of rectal bleeding, dystonia is noted. PSHx of hernia repair. 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 Patient denies fever, chills, REID, ear pain, sore throat, blurred vision, double vision, neck pain, CP, SOB, ABD pain, dysuria, hematuria, blood in the stool, constipation, edema, bruising, rashes, anxiety. On triage, pain is rated 3/10, nothing is noted to aggravate/alleviate Sx. Home medications and allergies are reviewed. - History of Current Complaint Chief Complaint: EDFluSymptoms Stated Complaint: DIZZINESS/VOMITING/FEVER Hx Obtained From: Patient Hx Last Menstrual Period: 06/09 Onset/Duration: Started Days Ago - one day ago, Still Present Timing: Constant, Lasting Days - one day Severity: Mild - 3/10 Current Severity: Mild - 3/10 Pain Intensity: 3 Location of Pain: Diffuse - body aches Pain Characteristics: Aching Associated Signs and Symptoms: Positive: Dizziness, Nausea, Vomiting, Diarrhea, Other: - denies REID, ear pain, sore throat, blurred vision, double vision, neck pain, SOB, edema, rashes, anxiety.. Negative: Back Pain, Bruising, Constipation , Blood w/Stool, Fever, Hematuria, Dysuria, Chills, Abdominal Pain, Chest Pain Aggravating Factor(s): Nothing Alleviating Factor(s): Nothing - Allergy/Home Medications Allergies/Adverse Reactions: Allergies Allergy/AdvReac Type Severity Reaction Status Date / Time clonazepam [From Klonopin] Allergy Severe Hives Verified 07/30/18 08:48 latex Allergy Severe Hives Verified 07/30/18 08:48 butalbital [From Fioricet] Allergy Swelling Verified 07/30/18 08:48 Of Face,Lips,& Throat vistaril AdvReac Severe Swelling Uncoded 07/30/18 08:48 Of Face,Lips,& Throat Home Medications: Home Medications Fluoxetine HCl [Prozac] 20 mg PO DAILY 07/30/18 [History Confirmed 07/30/18] PMH/Surg Hx/FS Hx/Imm Hx Endocrine/Hematology History: Reports: Other Endocrine/Hematological Disorders - goiter Denies: Hx Diabetes, Hx Systemic Lupus Erythematosus, Hx Thyroid Disease, Hx Anemia, Hx Unexplained Bleeding Cardiovascular History: Reports: Hx Syncope - as a teenager Denies: Hx Hypercholesterolemia, Hx Hypotension, Hx Hypertension, Hx Pacemaker/ICD, Other Cardiovascular Problems/Disorders Respiratory History: Reports: Hx Asthma, Hx Seasonal Allergies Denies: Hx Chronic Bronchitis, Hx Cystic Fibrosis, Hx Lung Cancer, Hx Pneumonia, Hx Sleep Apnea, Other Respiratory Problems/Disorders GI History: Denies: Hx Cirrhosis, Hx Crohn's Disease, Hx Diverticulosis, Hx Gall Bladder Disease, Hx Gastroesophageal Reflux Disease, Hx Ulcer, Other GI Disorders History: Reports: Hx Kidney Infection - last 2 yrs ago, Other Problems/ Disorders - Bacterial Vaginosis- 08/2017 treated. Denies: Hx Kidney Stones, Hx Renal Disease Musculoskeletal History: Reports: Other Musculoskeletal History - Rhabdomyolysis - 2012, Inguinal Hernia repair Denies: Hx Arthritis, Hx Back Problems, Hx Fibromyalgia, Hx Osteoporosis Sensory History: Reports: Hx Contacts or Glasses - not with pt Denies: Hx Hearing Aid Opthamlomology History: Reports: Hx Contacts or Glasses - not with pt Neurological History: Reports: Other Neuro Impairments/Disorders - Paroxysmal Nonkinesigenic Dystonia Denies: Hx Headaches, Hx Migraine, Hx Seizures, Hx Spinal Cord Injury Psychiatric History: Reports: Hx Depression - post Denies: Hx Eating Disorder, Hx Panic Disorder, Hx Suicide Attempt, Hx Substance Abuse - Cancer History Hx Chemotherapy: No - Surgical History Surgery Procedure, Year, and Place: hernia repair 1988. UTERINE FIBROID REMOVED Hx Anesthesia Reactions: No - Immunization History Date of Influenza Vaccine: 06/2017 Immunizations Up to Date: Yes Infectious Disease History: No Infectious Disease History: Denies: Hx Human Immunodeficiency Virus (HIV), Hx Shingles, Hx Tuberculosis, Traveled Outside the [place] in Last 30 Days - Family History Known Family History: Positive: Cardiac Disease, Hypertension, Diabetes - Social History Alcohol Use: Occasionally Alcohol Amount: 3 drinks per week Hx Substance Use: No Substance Use Type: Reports: None Hx Tobacco Use: No Smoking Status (MU): Never Smoked Tobacco Review of Systems Negative: Fever, Chills Positive: Other - NEGATIVE: double vision . Negative: Blurred Vision Negative: Sore Throat, Ear Ache Negative: Chest Pain Negative: Shortness Of Breath Positive: Vomiting - black bile , Diarrhea, Nausea. Negative: Abdominal Pain Positive: other - NEGATIVE: blood in stool, constipation . Negative: dysuria, hematuria Positive: Other - POSITIVE: lower back pain NEGATIVE: neck pain. Negative: Edema Negative: Rash, Bruising Neurological: Other - POSITIVE: dizziness Negative: Headache Negative: Anxious All Other Systems Reviewed And Are Negative: No Physical Exam - Summary Physical Exam Summary: Appearance: Alert, conversive, nontoxic appearing; tired-appearing, pale, appears fatigued Skin: Warm, dry, no mottling, no rashes, no contusions HEENT: EOMI, PERRL, dry mucous membranes Neck: No masses on the neck, supple Respiratory: Clear to auscultation, breath sounds present, no rales, no rhonchi , no wheezes Cardiovascular: RRR, pulses are symmetrical in both lower and upper extremities Abdomen: Soft, non-tender Bowel Sounds: Present Musculoskeletal: No CVA tenderness, no obvious deformity, moving all extremities in a grossly normal manner Neurological: A&Ox3, CN II-XII Intact, moving all extremities symmetrically Psychiatric: Normal affect and mood Triage Information Reviewed: Yes Vital Signs On Initial Exam: Initial Vitals Temp Pulse Resp BP Pulse Ox 97.5 F 106 15 124/80 95 07/30/18 08:43 07/30/18 08:43 07/30/18 08:43 07/30/18 08:43 07/30/18 08:43 Vital Signs Reviewed: Yes Diagnostics - Vital Signs Vital Signs Temp Pulse Resp BP Pulse Ox 07/30/18 08:43 97.5 F 106 15 124/80 95 - Laboratory Result Diagrams: 07/30/18 09:31 07/30/18 09:31 Lab Statement: Any lab studies that have been ordered have been reviewed, and results considered in the medical decision making process. Re-Evaluation - Re-Evaluation First Eval Re-Evaluation Time: 10:02 Comment: Patient is still nauseous, patient will be given phenergan. Second Eval Re-Evaluation Time: 12:20 Change: Improved Comment: Patient reports she is feeling better, she will be discharged to home after more fluids GIGU Course/Dx - Course Course Of Treatment: Patient is a 33 y/o F w/ c/o N/V/D, body aches, lower back pain and dizziness for the past 24 hours. She also notes decreased PO food/ fluid intake. Emesis is described as a black bile, she denies coffee-ground emesis. No previous similar episodes reported. Dizziness is described as room- spinning. PMHx of rectal bleeding, dystonia is noted. PSHx of hernia repair. 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 Patient denies fever, chills, REID, ear pain, sore throat, blurred vision, double vision, neck pain, CP, SOB, ABD pain, dysuria, hematuria, blood in the stool, constipation, edema, bruising, rashes, anxiety. On physical exam, patient is noted to be pale appearing, tired appearing, and appears fatigued. Patient has dry mucous membranes. During ED course, patient received fluids, Zofran 4 mg IV , protonix 40 mg IV, Phenergan 25 mg IV, Compazine 10 mg IV, and Benadryl PO 25 mg. Labs showed lipase 24, carbon dioxide 18, glucose 92, magnesium 2.3, WBC 14.5. Liver enzymes are normal. Patient negative for influenza A, B. After medications and fluids, patient reports improvement in Sx. Patient was discharged to home. Dx of dehydration and vomiting. - Diagnoses Provider Diagnoses: Dehydration, Vomiting Discharge - Sign-Out/Discharge Documenting (check all that apply): Patient Departure - discharge - Discharge Plan Condition: Stable Disposition: HOME Prescriptions: Ondansetron ODT TAB* [Zofran 4 MG Odt TAB*] 4 mg PO Q8H PRN #20 tab.odt MDD 3 PRN Reason: Nausea Promethazine SUPP* [Phenergan Supp*] 25 mg NH Q6HR #12 supp MDD 3 Patient Education Materials: Dehydration (ED), Acute Nausea and Vomiting (ED) Forms: *Work Release Referrals: Cherry Schmitt MD [Primary Care Provider] - Additional Instructions: return if worse or any new symptoms. Take the zofran for nausea/vomiting. if you have persistent vomiting, use the phenergan suppositories. drink plenty of fluids. stay hydrated. - Billing Disposition and Condition Condition: STABLE Disposition: Home - Attestation Statements Document Initiated by Scribe: Yes Documenting Scribe: Ronald Joy Provider For Whom Scribe is Documenting (Include Credential): Delma Guevara MD Scribe Attestation: I, Ronald Joy, scribed for Delma Guevara MD on 07/31/18 at 1005. Scribe Documentation Reviewed: Yes Provider Attestation: The documentation as recorded by the Ronald urena accurately reflects the service I personally performed and the decisions made by me, Delma Guevara MD
[2018-07-30 09:45] LABS: ABS Basophils 0.1 10^3/ul (0-0.2); ABS Eosinophils 0 10^3/ul (0-0.6); ABS Monocytes 0.3 10^3/ul (0-0.8); ABS Neutrophils 13.2 10^3/ul (1.5-7.7); ABS Nucleated RBC 0.1 10^3/ul; Eosinophil % 0.1 % (0-6); Hematocrit 46 % (35-47); Hemoglobin 15.7 g/dl (12.0-16.0); Lymphocyte % 6.6 % (25-47); Mean Corpuscular HGB Conc 34 g/dl (31-36); Mean Corpuscular Hemoglobin 30 pg (27-31); Mean Corpuscular Volume 86 fL (80-97); Mean Platelet Volume 7.8 fL (7.4-10.4); Nucleated Red Blood Cells % 0.3; Platelet Count 382 10^3/ul (150-450); Red Blood Count 5.33 10^6/ul (4.00-5.40); Red Cell Distribution Width 13 % (10.5-15); White Blood Count 14.5 10^3/ul (3.5-10.8)
[2018-07-30 09:59] LABS: EGFR Non-African American 76.6 (>60)
[2018-07-30] MEDS ORDERED: Promethazine INJ(RESTRICTED)* 25 MG/ML 1 ML VIAL IV ONE (10:07)
[2018-07-30] MEDS ORDERED: PROCHLORPERAZINE INJ 5 MG/ML 2 ML VIAL IV ONE (11:00)
[2018-07-30] MEDS ORDERED: diPHENhydraMINE PO* 25 MG PO ONE (11:08)
[2018-07-30 14:19] VITALS: BP 111/72
== END 2018-07-30 14:18 | disposition home or self-care (01) ==
LOC: ED 08:29
DX: E86.0 Dehydration (principal); R42 Dizziness and giddiness; Z88.8 Allergy status to other drugs, medicaments and biological substances; Z91.040 Latex allergy status
CPT/HCPCS: 36415; 80053; 83690; 83735; 85025; 96361; 96374; 96375; 99282; A9270-GY; J0780; J2405; J2550

== ENCOUNTER 2019-06-23 09:16 | Emergency (ER) | payer BC ==
--- OUTSIDE RECORDS SUMMARY | 2019-06-23 09:54 | XMS REPORT | Continuity of Care Document ---
:1985 External Reference #:[id number] Author Name Yuli Tinsley M.D. (transmitted by agent of provider Nicole [place]) Address [address] [place] [address], [place] [address] Care Team Providers Name Role Phone Cherry Schmitt MD - Internal Care Team Information [place] [phone] Medicine Josr Hampton MD - Rheumatology Care Team Information [place] [phone] Problems Active Problems Provider Date Paroxysmal dystonia Yuli Tinsley M.D. Onset: 11/28/2012 Social History Type Date Description Comments Sex Unknown Tobacco Use Start: Unknown Never Smoked Cigarettes Smoking Status Reviewed: 06/10/19 Never Smoked Cigarettes ETOH Use Occasionally consumes 1-2 drinks on the alcohol weekend Tobacco Use Start: Unknown Patient has never smoked Exercise Exercises sporadically Type/Frequency Allergies, Adverse Reactions, Alerts Active Allergies Reaction Severity Comments Date Vistaril 12/03/2012 Klonopin 12/03/2012 Latex 12/03/2012 Fioricet Anaphylaxis 06/05/2017 Medications Active Medications SIG Qnty Indications Ordering Date Provider Diazepam take 1 by mouth 4tabs G24.9 Yuli Tinsley, 06/10/2019 5mg Tablets up to twice a M.D. day as needed for spasms Acetazolamide 2 by mouth 450tabs Yuli Tinsley, 03/05/2013 125mg Tablets every morning, M.D. 3 by mouth every night Xyzal Allergy 24HR 1 by mouth Unknown 5mg every day Tablets Ortho Tri-Cyclen Lo 1 by mouth 28tabs Lorenzo Castañeda, every day 0.18/0.215/0.25 mg-25 mcg Tablets Lansoprazole 1 by mouth Unknown 30mg Capsules DR every day Flonase Allergy Relief spray 1 spray Unknown in each nostril 50mcg/Act Suspension daily prn Vitamin D-3 1 by mouth Unknown 5000Unit Tablets every day Magnesium Oxide 1 by mouth Unknown (Antacid) every day 500mg Capsules Fluoxetine HCL 1 by mouth Unknown 20mg Capsules every day Rizatriptan Benzoate 1 by mouth as Unknown 10mg needed for Tablets headache may repeat once in 2 hours max 2 days a week Indomethacin 1 by mouth Unknown 50mg Capsules three times a day prn Ondansetron HCL one by mouth Unknown 4mg Tablets every 8 hours as needed for nausea Prochlorperazine Maleate 1 every 4-6 Unknown 5mg hours as needed Tablets for nausea Phenergan take 1 per Unknown 25mg Suppository rectum every 8 hours, prn nausea Immunizations Description No Information Available Vital Signs Date Vital Result Comment 06/10/2019 8:36am Height 61 inches 5'1" Weight 139.25 lb Heart Rate 88 /min BP Systolic Sitting 100 mmHg BP Diastolic Sitting 82 mmHg Respiratory Rate 16 /min BMI (Body Mass Index) 26.3 kg/m2 03/12/2019 9:39am Height 61 inches 5'1" Weight 149.50 lb Heart Rate 85 /min BP Systolic 137 mmHg BP Diastolic 81 mmHg O2 % BldC Oximetry 100 % BMI (Body Mass Index) 28.2 kg/m2 Last Menstrual Period [id number] Results Test Date Facility Test Result H/L Range Note Laboratory test 03/12/2019 [facility] Syphillis Igg Negative Negative finding [address] W/[place] [address] [phone] Hepatitis B Surface Ag Negative Negative HIV 4TH 03/12/2019 [facility] HIV 4th Negative Negative Generation [address] [place] [address] [phone] Laboratory test 03/12/2019 [facility] HCG < 0.60 [address] mIU/[place] [address] [phone] GC/Chlamydia 03/12/2019 [facility] Chlamydia Negative Negative Amplified Rna [address] [place] [address] [phone] Neisseria gonorrhoeae (GC) Rna Negative Negative Laboratory 03/12/2019 [facility] Trichomonas Negative Negative 2 test finding [address] [address] [phone] Laboratory 03/12/2019 [facility] Gardnerella/Yea SEE RESULT 3 test finding [address]: [place] [address] [phone] Laboratory 12/23/2018 [facility] Cytology SEE RESULT 4, 5 test finding [address] [place] [address] [phone] 1 <5.0 Negative 5.0 - 25.0 Indeterminate (Repeat testing recommended after 72 hours) >25.0 Positive Perimenopausal women can display HCG levels of up to 20 mIU/mL 2 [id number] GC/Chlamydia Source?: Endocervical Trichomonas Source: Endocervical 3 SEE RESULT BELOW Name: TOOTIE GUERRERO : [address]: Stacey Chopra NP, CNM Acct: [id number] Unit: [id number] AGE: 33 Location: [facility] Re03/12/19 SEX: F Status: REG REF SPEC: [id number] NISA: 03/12/19-[address]: Stacey CARDENAS REQ: [id number] RECD: 03/12/191718 STATUS: COMP _ SOURCE: VAGINAL [facility]: ORDERED: Nakul,Yeast DNA COMMENTS: [id number] Would you like to order Trichomonas Vaginalis testing? Yes Procedure Result Reported Site Gardnerella/Yeast: Vaginal DNA Final 03/13/19- 1131 ML Organism 1 Negative Gardnerella Organism 2 Negative Brina The presence of G. vaginalis, although suggestive, is not diagnostic for bacterial vaginosis. Results should be interpreted in conjuction with other clinical and laboratory data available. Women with vaginal discharge should be evaluated for risk factors of cervicitis and pelvic inflammatory disease, toxic shock syndrome (S.aureus), and if present, evaluated for organisms not included in this assay such as N. gonorrhoeae, C. trachomatis, Mobiluncus, Mycoplasma and/or Prevotella. Mixed infections may occur. The performance of this test on patient specimens collected during or immediately after antimicrobial therapy is unknown. The presence or absence of Brina species, or G. vaginalis cannot be used as a test for therapeutic success or failure. * [facility] - Main Lab . END OF REPORT DEPARTMENT OF PATHOLOGY, [address] [place] [address] Tavo Holland M.D. Director [facility] # [id number] SEE RESULT BELOW Name: TOOTIE GUERRERO : [address]: Lorenzo Castañeda MD Acct: [id number] Unit: [id number] AGE: 33 Location: [facility] Re12/23/18 SEX: F Status: REG REF SPEC: [id number] NISA: 12/23/[address]: Lorenzo Castañeda MD REQ: [id number] RECD: 12/23/18 STATUS: SOUT _ ORDERED: TP IMAGE ANALYS, HPV/Thin Prep COMMENTS: [id number] Negative for Intraepithelial lesion or Malignancy Date Time Test Result Flag (u) Normal Range 12/23/18929 @ HPV RNA Negative Negative @ @ The high-risk HPV types detected by the assay include: 16, @ 18, 31, 33, 35, 39, 45, 51, 52, 56, 58, 59, 66, and 68. A. Ectocervical/Endocervical Specimen Adequacy: Satisfactory of evaluation Transformation zone component not identified Patient Information: HPV: High risk HPV RNA testing regardless of pap results. Actual Specimen Date: 12/23/18 Last Menstrual Date: 12/01/18 ?: N Post Menopausal?: N Hysterectomy?: N Previous Abnormal Pap Smears?:N Signed by and Reported on: YOSEF Serrato (ASCP) 1412 This Pap test was evaluated with the assistance of the f4samuraip Test Imaging System. Due to cytologic findings at the peripatologist microscope, comprehensive manual rescreening by a Proofer Apprentice may be required. The Pap Smear is a screening test designed to aid in the detection of premalignant and malignant conditions of the uterine cervix. It is not a diagnostic procedure and should not be used as the sole means of detecting cervical cancer. Both false- positive and false- negative reports do occur. Depending on your risk status, a Pap smear should be obtained and evaluated every 1-3 years. END OF REPORT DEPARTMENT OF PATHOLOGY, [address] [place] [address] Tavo Holland M.D. Director [facility] # [id number] Procedures Date Code Description Status 05/07/2018 [id number] Colonoscopy Completed Medical Devices Description No Information Available Encounters Type Date Location Provider Dx Diagnosis Office Visit 06/10/2019 [facility] Herminia Alan4.Ramone Dystonia, 8:30a M.D. unspecified G43.709 Chronic migraine w/o aura, not intractable, w/o stat migr Office Visit 03/12/2019 [facility] Stacey Z11.3 Encntr screen 9:30a of Walter Chopra for infections w APPLIANCE TECHNICIAN-Cde sexl mode of transmiss Office Visit 03/04/2019 [facility] Yuli Hope4.9 Dystonia, 8:30a Clinic Son Tinsley unspecified G43.709 Chronic migraine w/o aura, not intractable, w/o stat migr Assessments Date Code Description Provider 06/10/2019 G24.9 Dystonia, unspecified Yuli Tinsley M.D. 06/10/2019 G43.709 Chronic migraine without aura, not Yuli Tinsley M.D. intractable, without stat 03/12/2019 Z11.3 Encounter for screening for infections with MULUGETA OrdonezCde a predominantly 03/04/2019 G24.9 Dystonia, unspecified Yuli Tinsley M.D. 03/04/2019 G43.709 Chronic migraine without aura, not Yuli Tinsley M.D. intractable, without stat 12/23/2018 Z01.419 Encounter for gynecological examination Lorenzo Castañeda MD (general) (routine) 12/23/2018 Z11.51 Encounter for screening for human Lorenzo Castañeda MD papillomavirus (HPV) Plan of Treatment Future Appointment(s):12/16/2019 8:30 am - Yuli Tinsley M.D. at [facility]3706/10/2019 - Lexi Alan4.9 Dystonia, unspecifiedNew Medication:Diazepam 5 mg - take 1 by mouth up to twice a day as needed for spasmsFollow up:6 monthsRecommendations:if your spasms or migraines increase in frequency, consider increasing acetazolamide to 125mg, threetablets twice a dayG43.709 Chronic migraine without aura, not intractable, without stat Functional Status Description No Information Available Mental Status Description No Information Available Referrals Description No Information Available
[2019-06-23 10:04] VITALS: BP 110/68
--- NOTE | 2019-06-23 10:06 | UC ---
FLU HPI - HPI Summary HPI Summary: Patient is a 34yo female presenting with fever of persistent fever of 102, headache, and myalgias since yesterday. 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 She has gotten the flu shot. She notes she took tylenol before coming here to reduce fever. Denies nasal congestion. Denies sore throat and cough. Denies SOB and wheezing. Notes decreased appetite. Denies taking anything else for symptom relief. - History of Current Complaint Chief Complaint: UCGeneralIllness Stated Complaint: FEVER BODY ACHES HEADACHE Hx Last Menstrual Period: 06/09 Pain Intensity: 2 - Allergy/Home Medications Allergies/Adverse Reactions: Allergies Allergy/AdvReac Type Severity Reaction Status Date / Time clonazepam [From Klonopin] Allergy Severe Hives Verified 06/23/19 10:02 latex Allergy Severe Hives Verified 06/23/19 10:02 butalbital [From Fioricet] Allergy Swelling Verified 06/23/19 10:02 Of Face,Lips,& Throat vistaril AdvReac Severe Swelling Uncoded 06/23/19 10:02 Of Face,Lips,& Throat PMH/Surg Hx/FS Hx/Imm Hx Previously Healthy: Yes - Surgical History Surgical History: Yes Surgery Procedure, Year, and Place: hernia repair 1988. UTERINE FIBROID REMOVED - Family History Known Family History: Positive: Cardiac Disease, Hypertension, Diabetes - Social History Alcohol Use: Occasionally Alcohol Amount: 3 drinks per week Substance Use Type: None Smoking Status (MU): Never Smoked Tobacco - Immunization History Most Recent Tetanus Shot: >10 yrs Review of Systems All Other Systems Reviewed And Are Negative: Yes Constitutional: Positive: Fever, Chills, Fatigue Skin: Positive: Negative Eyes: Positive: Negative ENT: Negative: Sore Throat, Ear Ache, Nasal Discharge, Sinus Congestion, Sinus Pain/Tenderness Respiratory: Positive: Negative. Negative: Shortness Of Breath, Cough Cardiovascular: Positive: Negative. Negative: Palpitations, Chest Pain Gastrointestinal: Positive: Negative. Negative: Abdominal Pain, Vomiting, Diarrhea, Nausea Musculoskeletal: Positive: Myalgia. Negative: Arthralgia, Edema Neurological: Positive: Headache. Negative: Paresthesia, Numbness Psychological: Positive: Negative Physical Exam Triage Information Reviewed: Yes Appearance: No Pain Distress, Well-Nourished, Ill-Appearing Vital Signs: Initial Vital Signs Temp 98 F 10/01/19 09:59 Pulse 82 06/23/19 09:59 Resp 16 06/23/19 09:59 BP 110/68 06/23/19 09:59 Pulse Ox 98 06/23/19 09:59 Lab Results 06/23/19 Range/Units 10:35 Influenza A (Rapid) Negative (Negative) Influenza B (Rapid) Negative (Negative) Eyes: Positive: Conjunctiva Clear ENT: Positive: Hearing grossly normal, Pharynx normal, TMs normal, Uvula midline. Negative: Pharyngeal erythema, Nasal congestion, Nasal drainage, TM bulging, Tonsillar swelling, Tonsillar exudate, Hoarse voice, Sinus tenderness Neck exam: Normal Neck: Negative: Supple, Nontender, No Lymphadenopathy Respiratory Exam: Normal Respiratory: Positive: Lungs clear, Normal breath sounds, No respiratory distress. Negative: Crackles, Rhonchi, Stridor, Wheezing Cardiovascular Exam: Normal Cardiovascular: Positive: RRR. Negative: Tachycardia Neurological: Positive: Alert Psychological: Positive: Age Appropriate Behavior Procedures - Sedation Patient Received Moderate/Deep Sedation with Procedure: No Flu Course/Dx - Course Course Of Treatment: Patient's rapid flu test was negative. Discussed likely viral etiology and important of rest and fluid intake. Patient instructed to continue OTC cold medications along with OTC analgesics for pain and fever relief. Instructed her to return or follow up with PCP if symptoms persist or worsen. Patient voiced understanding and agreed to treatment plan. - Differential Dx/Diagnosis Provider Diagnosis: Influenza-like symptoms Discharge ED - Sign-Out/Discharge Documenting (check all that apply): Patient Departure All imaging exams completed and their final reports reviewed: No Studies - Discharge Plan Condition: Stable Disposition: HOME Forms: *Work Release Referrals: Cherry Schmitt MD [Primary Care Provider] - If Needed Additional Instructions: You may continue to take over the counter cold medications for your symptoms. You may continue to take ibuprofen and tylenol as directed for pain and fever relief. Get plenty of rest and fluids. Return or follow up with your primary care doctor if your symptoms worsen or do not resolve within 7 days. - Billing Disposition and Condition Condition: STABLE Disposition: Home
[2019-06-23 10:48] LABS: Influenza A Molecular NEGATIVE (Negative); Influenza B Molecular NEGATIVE (Negative)
== END 2019-06-23 10:59 | disposition home or self-care (01) ==
LOC: UCCORT 09:16
DX: R50.9 Fever, unspecified (principal); R51 Headache; M79.10 Myalgia, unspecified site; R63.0 Anorexia; Z88.8 Allergy status to other drugs, medicaments and biological substances; Z91.040 Latex allergy status
CPT/HCPCS: 99212; G0463

== ENCOUNTER 2019-09-06 12:31 | Emergency (ER) | payer BC ==
[2019-09-06 13:05] VITALS: BP 114/65
--- NOTE | 2019-09-06 13:08 | UC ---
Ear Complaint HPI - HPI Summary HPI Summary: 34 year old female presents with a complaint of Right ear fullness, hearing loss and tinnitus x 3 days. Denies associated pain, no recent uri sx. Notes being slightly off balance, denies acute vertigo. - History of Current Complaint Chief Complaint: UCEar Stated Complaint: R EAR COMP Time Seen by Provider: 09/06/19 12:57 Hx Obtained From: Patient Hx Last Menstrual Period: 08/30/19 Onset/Duration: Sudden Onset, Lasting Days - 3 Pain Intensity: 0 - Allergies/Home Medications Allergies/Adverse Reactions: Allergies Allergy/AdvReac Type Severity Reaction Status Date / Time clonazepam [From Klonopin] Allergy Severe Hives Verified 09/06/19 13:00 latex Allergy Severe Hives Verified 09/06/19 13:00 butalbital [From Fioricet] Allergy Swelling Verified 09/06/19 13:00 Of Face,Lips,& Throat vistaril AdvReac Severe Swelling Uncoded 09/06/19 13:00 Of Face,Lips,& Throat Home Medications: Home Medications Pseudoephedrine HCl [Sudafed] 2 tab PO ONCE 09/06/19 [History Confirmed 09/06/19 ] diphenhydrAMINE HCl [Benadryl Allergy] 1 tab PO ONCE 09/06/19 [History Confirmed 09/06/19] PMH/Surg Hx/FS Hx/Imm Hx Previously Healthy: Yes - Dystonia - Surgical History Surgical History: Yes Surgery Procedure, Year, and Place: hernia repair 1988. UTERINE FIBROID REMOVED - Family History Known Family History: Positive: Cardiac Disease, Hypertension, Diabetes - Social History Alcohol Use: Occasionally Alcohol Amount: 3 drinks per week Substance Use Type: None Smoking Status (MU): Never Smoked Tobacco - Immunization History Most Recent Tetanus Shot: >10 yrs Review of Systems All Other Systems Reviewed And Are Negative: Yes Constitutional: Negative: Fever, Chills, Fatigue Skin: Negative: Rash, Bruising Eyes: Positive: Negative ENT: Positive: Other - Acute right hearing loss with tinnitis for 3 days.. Negative: Sore Throat Respiratory: Positive: Negative Cardiovascular: Positive: Negative Gastrointestinal: Positive: Negative Genitourinary: Positive: Negative Motor: Positive: Negative Neurovascular: Positive: Negative Musculoskeletal: Positive: Negative Neurological: Positive: Negative, Other - mild dizziness, no acute vertigo Psychological: Positive: Negative Is Patient Immunocompromised?: No Physical Exam Triage Information Reviewed: Yes Appearance: Well-Appearing, No Pain Distress Vital Signs: Initial Vital Signs Temp 97.2 F 09/06/19 13:02 Pulse 82 09/06/19 13:02 Resp 16 09/06/19 13:02 BP 114/65 09/06/19 13:02 Pulse Ox 99 09/06/19 13:02 Eye Exam: Normal ENT: Positive: Pharynx normal, TMs normal, Uvula midline. Negative: Nasal congestion, Nasal drainage, Tonsillar swelling, Tonsillar exudate, Sinus tenderness Neck: Positive: Supple, Nontender, No Lymphadenopathy Respiratory: Positive: Lungs clear. Negative: Crackles, Rhonchi, Wheezing Cardiovascular: Positive: RRR, No Murmur Abdomen Description: Positive: Nontender, Soft Musculoskeletal Exam: Normal Neurological: Positive: Alert, Muscle Tone Normal. Negative: Lethargic Psychological Exam: Normal Skin Exam: Normal Ear Complaint Course/Dx - Differential Dx/Diagnosis Provider Diagnosis: Acoustic neuritis affecting right ear Discharge ED - Sign-Out/Discharge Documenting (check all that apply): Patient Departure All imaging exams completed and their final reports reviewed: No Studies - Discharge Plan Condition: Stable Disposition: HOME Prescriptions: predniSONE [Prednisone 20 MG TAB] 20 mg PO DAILY 12 Days #20 tablet Patient Education Materials: Hearing Loss (ED) Referrals: Cherry Schmitt MD [Primary Care Provider] - Darin Sullivan MD [Medical Doctor] - Additional Instructions: Start Prednisone taper today. Call and make an ENT appointment within the next 72 hours. - Billing Disposition and Condition Condition: STABLE Disposition: Home
== END 2019-09-06 13:29 | disposition home or self-care (01) ==
LOC: UCCORT 12:31
DX: H93.3X1 Disorders of right acoustic nerve (principal); Z88.8 Allergy status to other drugs, medicaments and biological substances; Z91.040 Latex allergy status
CPT/HCPCS: 99212; G0463